=== PATIENT | female | born 1955 | race Caucasian/White ===

== ENCOUNTER → 2020-11-17 13:57 | Outpatient (CLI) | payer OTHER, SELFPAY ==
--- NOTE | ~2020-11-17 | CT_ITS ---
EXAMINATION: CT brain wo con DATE: 11/17/2020 14:36 INDICATION: Headache TECHNIQUE: Computed tomography (CT) of the head was performed without intravenous contrast. The mA wa s adjusted according to patient size. Iterative reconstruction technique was employed. Exam dose: 10 33.53 mGy-cm total exam DLP. COMPARISON: None FINDINGS: No intracranial mass lesion or hemorrhage or cerebrovascular accident. No midline shift or mass effect. No subdural or epidural hematoma. Normal ventricular size. No fracture or bone destruction of the cranial vault. The mastoid air cells and paranasal sinuses are normally developed and aerated. IMPRESSION: No significant abnormality Reviewed, dictated and finalized at Location [facility]. Reviewed, dictated and finalized at location B. [employer] IMPRESSION: No significant abnormality
--- NOTE | ~2020-11-17 | CT_ITS ---
EXAMINATION: CT abdomen pelvis wo con DATE: 11/17/2020 14:36 INDICATION: Left lower quadrant abdominal pain, diarrhea. History of colon resection in June 2020. TECHNIQUE: Computed tomography (CT) of the abdomen and pelvis was performed without intravenous contr ast. Automated exposure control and iterative reconstruction technique were employed. Exam dose: 103 3.53 mGy-cm total exam DLP. COMPARISON: 09/03/2014 CT abdomen pelvis with IV contrast material FINDINGS: There is mild atelectasis at the left lung base. No infiltrate or consolidation of the lowe r lungs is evident. Normal heart size. No pericardial or pleural effusion. Small sliding hiatal hernia. Status post cholecystectomy. No bile duct or pancreatic duct dilatation. No hepatic, splenic, pancrea tic, adrenal or renal space-occupying mass lesion is detected. There is atherosclerotic calcification but no aneurysm of the abdominal aorta. No intraperitoneal or retroperitoneal or pelvic mass lesion or adenopathy or ascites. The uterus and adnexal areas are unremarkable. The urinary bladder is evacuated. There is a suture line at the distal sigmoid colon consistent with history of partial colectomy. Ther e is diverticulosis of the left and right colon; no CT evidence of diverticulitis. No evidence of mauricio endicitis. No bowel obstruction, bowel wall thickening, pneumatosis or intraperitoneal free air. No suspicious osteolytic or osteoblastic lesions are noted. IMPRESSION: Partial left colon resection Diverticulosis of left and right colon; no CT evidence of diverticulitis Small sliding hiatal hernia Status post cholecystectomy Reviewed, dictated and finalized at [facility]. Reviewed, dictated and finalized at location B. [employer]
== END ==
PROVIDERS: Visit Provider Family Medicine
DX: R10.9 Unspecified abdominal pain (principal); R51.9 Headache, unspecified; Z90.49 Acquired absence of other specified parts of digestive tract; K57.90 Diverticulosis of intestine, part unspecified, without perforation or abscess without bleeding; K44.9 Diaphragmatic hernia without obstruction or gangrene
CPT/HCPCS: 70450; 74176

== ENCOUNTER 2021-05-04 08:15 | Outpatient (RCR) | payer OTHER, MEDICARE, SELFPAY ==
--- NOTE | 2021-04-04 16:47 | PTOPEVAL ---
PHYSICAL THERAPY EVALUATION Thank you for referring Adwoa Nugent to [facility].? Adwoa was evaluated for the dx of right shoulder adhesive capsulitis. The patient is scheduled to be seen for therapy? 2 x/week for 4 weeks. Please review, sign, date and return this plan of care GEOVANI. I agree with and certify that the following plan of care is medically necessary. Referring Physician Date Attending Provider: Gopi Yates MD *PT Outpatient Evaluation Start: 04/04/21 09:41 Freq: Status: Active Protocol: Document 04/04/21 09:40 MLV (Rec: 04/04/21 10:51 MLV [email or web address]) Therapy Assessment Status Assessment Status Assessment Status Evaluation Evaluation Information Problem Diagnosis right shoulder adhesive capsulitis Onset 07/2020 Cause increase arm use after colon surgery. Additional Evaluation Detail Pt reports having trouble with her shoulder starting 3 yrs ago when her elbow flared up, then the pain got worse after overusing her arm to get out of bed after a colon surgery. The patient has pain at her shoulder that goes all the way to her hand. The pt is retired, works out 5 days a week and was lifting weights until the shoulder got worse. The patient has increased pain with lifting, reaching, left sidelying, housework, yardwork and workouts. Pt inquires on how to change workouts so she can continue at the gym. Diagnostic Tests X-Rays For This Problem Yes: 2 bone spurs with tendon damage Pain Assessment Timing of Pain Assessment Timing of Pain Assessment Assessment Pain Scale Pain Scale Used Numeric (1 - 10) Self Report Pain Assessment Right Shoulder(s) Reported Pain Level 5 Pain Description Aching,Sharp Radicular Pain Location right arm to hand 3 of 10 pain at rest Pain Frequency Acute,Chronic,Continuous Greatest Pain Intensity 9 Pain Aggravating Factors ADL's,Exercise/Activity, Lifting Pain Behaviors Restless Pain Score Pain Score 5: Self Report Interventions Used Interventions Used By Clinicians Education,[employer]
--- NOTE | 2021-05-04 13:13 | PTOPEVAL ---
PHYSICAL THERAPY DISCHARGE Thank you for referring Adwoa Nugent to [facility].? Adwoa has completed 9 therapy visits for the dx of right shoulder adhesive capsulitis. The goals are partially met. ANGEL PT. Please review, sign, date and return this plan of care GEOVANI. I agree with and certify the following plan of care. Referring Physician Date Attending Provider: Gopi Yates MD *PT Outpatient Discharge Start: 04/04/21 09:41 Freq: Status: Active Protocol: Document 05/04/21 11:55 MLV (Rec: 05/04/21 12:02 MLV [email or web address]) Therapy Assessment Status Assessment Status Discharge Evaluation Information Problem Diagnosis right shoulder adhesive capsulitis Onset 07/2020 Cause increase arm use after colon surgery. Additional Evaluation Detail Patient feels she has improved with mobility/flexibility at her shoulder and the pain has decreased. Patient saw the MD today and reports she is to have an MRI next week and may possibly require surgery. The patient plans to continue her exercises as given here, on her own and will call if any issues arise. Pain Assessment Timing of Pain Assessment Timing of Pain Assessment Assessment Pain Scale Pain Scale Used Numeric (1 - 10) Self Report Pain Assessment Right Shoulder(s) Reported Pain Level 0 Other Pain Description 5 with motion and increased pain with attempting to lift any weight Pain Aggravating Factors Exercise/Activity,Lifting Pain Behaviors Guarding Pain Score Pain Score 0: Self Report Interventions Used Interventions Used By Clinicians Exercise,Heat,Ice,Manual Therapy Techniques Pain Relief Interventions Used By Inactivity/Rest,Position Patient Change Upper Extremity Range of Motion General Upper Extremity Range of Motion Gross Upper Extremity Range of Motion shoulder ROM: active: left Comments flexion 154', abduction 152', extension 82', ER 72', IR 80' right flexion 113', abduction 107', extension 77', ER 77', IR 75': passive flexion 158' (all motions improved from evaluation date) Upper Extremity Muscle Strength Testing General U
== END 2021-05-05 15:20 | disposition home or self-care (01) ==
LOC: ANHPT 08:15
PROVIDERS: PCP Family Medicine; Visit Provider Orthopaedic Surgery
DX: M75.01 Adhesive capsulitis of right shoulder (principal)
CPT/HCPCS: 97014; 97110; 97140; 97162; G0283

== ENCOUNTER → 2021-09-15 01:48 | Outpatient (CLI) | payer OTHER, MEDICARE, SELFPAY ==
[2021-09-15 22:24] LABS: SARS-CoV-2 RNA PCR Negative
== END ==
PROVIDERS: PCP Family Medicine; Visit Provider Family Medicine
DX: R51.9 Headache, unspecified (principal); Z20.822 Contact with and (suspected) exposure to COVID-19
CPT/HCPCS: C9803; U0003; U0005

== ENCOUNTER 2021-10-10 00:32 | Day surgery (SDC) | payer OTHER, MEDICARE, SELFPAY ==
[2021-08-22 10:37] VITALS: BMI 38.9
[2021-09-27 13:04] VITALS: BMI 39.0
--- NOTE | 2021-09-27 13:17 | PC.NURSE ---
Report to the Outpatient Waiting Room, entrance under the green pavilion located off [facility], at time ____829___ on date 10/10/21__. OR Time: ____1029____. - You and your visitor will be asked a series of questions to screen for COVID 19 for your protection. - A mask is required within the hospital. - Only one visitor is allowed at this time. Patient visitors will be guided where to wait when not with patient. Preoperative COVID Testing Requirements: No COVID Test needed if: (proof is required; if not received patient will have Rapid Test prior to entry) - Patient has received COVID Vaccine at least 14 days prior to procedure date or - Patient has positive COVID test result within last 90 days of surgery date. COVID Test needed if above criteria is not met If not COVID vaccinated a COVID test must be conducted within 72 hours of surgery and patient is asked to isolate self from time of testing until procedure. You will go to the [facility] for your COVID testing. The [facility] site is located at the corner of [address] from [facility]. You will only be called if COVID results are positive and your surgeon may reschedule your elective surgery date. Patients may have clear liquids (water, carbonated beverages, clear teas, apple juice) until 3 hours prior to surgery with a maximum of 20 ounces. - No food from midnight until time of surgery - Infants may have breast milk until 4 hours before surgery, infant formula 6 hours prior to surgery. - Children will be allowed to drink immediately following surgery. If applicable, please bring a bottle or sippy cup to assist with drinking. Juice, water, soda, and popsicles are readily available. For infants on formula, please bring formula the day of surgery. Pacifiers are allowed. Take the following medications with a SIP of water the morning of surgery: NONE Medications to discontinue per physician NONE Date to take last dose Please no make-up, nail bulgarian, hairspray, perfume, deodorant, or body powder the day of surgery. No jewelry (including any body piercings) or valuables the day of surgery, leave them at home. Please take a shower or bath the night before, or the morning of, surgery with an antibacterial soap. Wear comfortable, loose fitting clothing. Children are encouraged to wear pajamas. - Jewelry must be removed prior to entering the operating room. Rings and piercings that are not removed may be cut off. - The hospital will not accept responsibility for valuables. - Please leave all valuables, including medications, at home the day of surgery. If you are going home after surgery, a licensed route driver must drive you home. - NO public transportation without another adult. - We recommend that an adult stay with you for 24 hours following discharge. - We also recommend that you do not drive, make important decision, drink alcoholic beverages, or take any drugs that were not prescribed by your health care provider for at least 24 hours after your discharge time. For Pediatric surgeries, we recommend two adults accompany the child home (only one inside the building at this time). Follow any additional instructions given to you from your surgeon. Telephone instructions given to PATIENT and asked if any additional questions and then verbalized understanding. Patient advised to call surgeon office or pre surgery nurse liaison [phone] if any additional questions.
[2021-10-10] VITALS (10 sets, daily range): BP systolic 106–173; BP diastolic 61–94; PULSE 87–104; RESP 14–22; TEMP 36.4–36.6; O2SAT 91–100
--- NOTE | 2021-10-10 08:08 | P.PNAN_ITS ---
Anes - Initial Pre Proc Eval Procedure: Operation Date: 10/10/21 10:30 Proposed Procedures p Right Rotator Cuff Repair, Distal Clavicle Excision - Gopi Yates MD Date/Time: 10/10/21 08:08 Surgeon: Gopi Yates MD Pre Op Diagnosis: rt rotator cuff tear, ac arthritis Patient Data Age: 66 Gender: F Height: 1.6 m Weight: 100 kg Allergies Allergy/AdvReac Type Severity Reaction Status Date / Time codeine AdvReac Mild Nausea Verified 09/27/21 13:02 levofloxacin AdvReac Mild ACHILLES Verified 09/27/21 13:02 TENDON INFLAMATION Home Medications Medication Instructions Recorded Confirmed Type cetirizine 10 mg capsule 10 mg PO DAILY 05/04/21 10/04/21 History amitriptyline 10 mg tablet 10 mg PO QHS #30 tablet 09/14/21 10/04/21 Rx Patient hx anesthesia problems: post op nausea/vomiting Family hx anesthesia problems: none Results Review: All pre-operative results and documents have been reviewed as part of the pre-operative evaluation. [facility] Past Medical History Medical History (Updated 10/10/21 @ 09:21 by Naveed Darby, ) Abdominal pain Acute diverticulitis Acute non-recurrent maxillary sinusitis Arthritis of right acromioclavicular joint Bilateral lower abdominal discomfort Chronic right shoulder pain COVID-19 (11/29/20) Degenerative arthritis of knee, bilateral Diarrhea Exposure to COVID-19 virus Facial cellulitis Fibromyalgia Headache Hiatal hernia Incomplete tear of right rotator cuff Migraine headache without aura PONV (postoperative nausea and vomiting) Subacromial impingement of right shoulder Surgical History Surgical History H/O knee surgery History of cholecystectomy History of colon resection Family History Family History Mother Family history of cardiovascular disease Father Family history of malignant neoplasm, Onset Age: 79 Grandparent Family history of malignant neoplasm Sibling Family history of malignant neoplasm of breast in first degree relative Social History Social History Smoking status: Never smoker Alcohol intake: never Substance use: never Substance use type: does not use Living arrangements: with family Additional living arrangements comments: [place] Gender identity (if verbalized by the patient): Female Spiritual care concerns: No Anes - Eval Final PreProcedure Day of Procedure 10/10/21 08:08 Patient weight: obese Heart: regular rate and rhythm Lungs: clear to auscultation and normal air movement Airway: Mallampati scale class II Neurological: alert and oriented Last oral intake: >/= 8 hours ASA classification: II Emergent: no Anesthetic plan: proceed Anesthesia type and monitoring: general ETT and standard monitoring Results Review: All pre-operative results and documents have been reviewed as part of the pre-operative evaluation. Informed Consent: The patient's anesthetic plan and its attendant risks and benefits were discussed with the patient/family/POA. Questions were solicited and answers provided to the satisfaction of the patient/family/POA.
--- NOTE | 2021-10-10 09:27 | WPDANESPNB ---
Anes - Peripheral Nerve Block Date/Time: 10/10/21 09:27 I have discussed with the patient/family/POA the placement of a peripheral nerve block for post-operative pain management, including associated risks, benefits, complications, and side effects. Alternative methods of post-operative analgesia were detailed. Questions were solicited and answers provided to the satisfaction of the patient/family/POA. Time-Out: A pre-procedural Time-Out was completed immediately before starting the procedure and confirmed: Patient Identification, Site, Procedure, Patient Position and the Availability of Requisite Equipment. Clinical Indications: Acute post-operative pain management requested by the operative surgeon. Nerve Block Insertion Note Anes-nerve block: interscalene right Patient position: supine Skin prep: chlorhexidine Needle: 22 gauge, stimulating, insulated echogenic needle. Needle length: 50 mm Technique: ultrasound Injectate: bupivacaine 0.5% with epi 5 mcg/ml (30cc- no epi) Observations: tolerated well Complications: none Procedure start time:: 1035 Procedure end time:: 103
[2021-10-10] MEDS: ACETAMINOPHEN 500 MG TABLET 1000 MG PO (09:42)
[2021-10-10] MEDS: SCOPOLAMINE 1.5 MG PATCH TRANSDERM (09:44)
[2021-10-10] MEDS: LACTATED RINGERS 1,000 ML 30 ML IV CONT ×2 (09:45→12:16)
[2021-10-10] MEDS: KETOROLAC 15 MG/ML VIAL (*BKC) IV PUSH (09:57)
--- NOTE | 2021-10-10 10:22 | WPDHPUPDATE1 ---
History and Physical Update Update Date/Time: 10/10/21 10:22 History and Physical has been reviewed, including an updated exam of the patient. There are NO changes in the patient's condition. Risks, benefits, and alternatives have been discussed and questions answered. Patient agrees to proceed with procedure.
[2021-10-10] MEDS: ceFAZolin 2 GM/D5W 50 ML 2 GM/50 ML BAG IVPB (10:54)
[2021-10-10] MEDS: LIDO 1%/EPINEPHRINE/PF 1:200,000 30 ML VIAL 10 ML XX (11:25)
--- NOTE | 2021-10-10 12:16 | W.PM.PROC2 ---
Procedure Note - Detailed Date of Procedure 10/10/21 Pre-op Diagnosis rt rotator cuff tear, ac arthritis Post-op Diagnosis same Procedure Performed right rotator cuff repair with DCE Surgeon Gopi Yates MD Certified Diabetes Educator Sabine Steele Anesthesia general and regional Description of Procedure Patient was identified and proper site identified. In the preop holding area the anesthesia team performed a right upper extremity block. She was then taken to the operating room and transferred to the or table taking care to pad the torso and extremities. After general anesthetic induction and intubation, she was put in a semi beach chair position in the usual manner for a right shoulder procedure. Her head was secured taking care to neither rotate nor extend the head and neck. The right upper extremity was prepped and draped free in usual sterile fashion. The subcutaneous tissue in the area of the incision was injected with 10 cc of 0.25% Marcaine and epinephrine solution. An oblique anterior incision was made extending from the AC joint distally in line with the fibers of the deltoid. Subcutaneous tissue was sharply dissected down to the deltoid fascia. The deltoid was dissected off the anterior portion of the acromion in the distal end of the clavicle. A 2 cm split was made at the junction between the anterior and middle thirds of the deltoid. Using the microsagittal saw the last 8 mm of clavicle removed. The saw was also used to perform the acromioplasty and then the undersurface of the acromion was rasped smooth.. There was an abundance of thickened adherent bursa which was sharply debrided allowing for complete inspection of the cuff. There was a near full-thickness erosive type bursal sided tear the anterior portion of the supraspinatus. This was completed, the tendon edges freshened up and then tuberosity prepared for repair. The repair was carried out with 2. Ethibond suture passed through a bony bridge. This gave a arce repair which was stable as the shoulder was taken through range of motion. The wound was irrigated with sterile NaCl solution. The deltoid was repaired back to the acromion with 2. Ethibond suture passed through bone and the remainder of the deltoid repair carried out with 2. Vicryl. Subcutaneous tissue was reapproximated with 2. Strata fix and then tissue adhesive used for the skin. Sterile dressing was applied. There were no known intraoperative complications, and perioperative antibiotics were administered. Estimated Blood Loss 20 Drains No Packing No Pathology none sent Complications No immediate complications Condition stable Disposition PACU
--- NOTE | 2021-10-10 14:37 | SUR.PHASEII ---
Dr. Darby aware of O2 sats on room air and he said it's ok to discharge home.
== END 2021-10-10 15:05 | disposition home or self-care (01) ==
PROVIDERS: PCP Family Medicine; Visit Provider Orthopaedic Surgery
PROC: (CPT 23420; principal; 2021-10-10 10:30)
DX: M75.111 Incomplete rotator cuff tear or rupture of right shoulder, not specified as traumatic (principal); M19.011 Primary osteoarthritis, right shoulder; G89.18 Other acute postprocedural pain; E66.01 Morbid (severe) obesity due to excess calories; Z68.41 Body mass index [BMI] 40.0-44.9, adult
CPT/HCPCS: 23412; 23120; 64415; A4565; A9270; J0330; J0690; J1100; J1885; J2250; J2370; J2405; J2704; J3010; J7120

== ENCOUNTER 2021-10-18 11:33 | Outpatient (CLI) | payer OTHER, MEDICARE, SELFPAY ==
--- NOTE | ~2021-10-18 | XR_ITS ---
EXAMINATION: XR chest 2V DATE: 10/18/2021 11:56 INDICATION: Cough TECHNIQUE: PA and lateral views of the chest were obtained. COMPARISON: Chest radiograph dated 03/22/2016 FINDINGS: Mild eventration along the right hemidiaphragm. Unchanged left pericardial fat pads extending between the apex of the heart and the costophrenic angle. No airspace opacities, pulmonary edema, pleural ef fusion or pneumothorax. The cardiomediastinal silhouette is normal. There are bridging osteophytes at multiple levels in the spine, consistent with diffuse idiopathic skeletal hyperostosis (DISH). Brittney cystectomy clips in the right upper quadrant. IMPRESSION: 1. No acute cardiopulmonary disease. Reviewed, dictated and finalized at location B. R [employer] IN[employer]
== END 2021-10-18 11:34 | disposition home or self-care (01) ==
LOC: ANHIMG 11:43
PROVIDERS: PCP Family Medicine; Visit Provider Nurse Practitioner Family
DX: R05.9 Cough, unspecified (principal)
CPT/HCPCS: 71046

== ENCOUNTER 2022-01-06 10:00 | Outpatient (RCR) | payer MEDICARE, OTHER, SELFPAY ==
[2021-10-12 14:30] VITALS: BP_SYST 50
--- NOTE | 2021-10-12 15:37 | PTOPEVAL ---
Thank you for referring Adwoa Nugent to [facility].? The patient is scheduled to be seen for therapy? 2 x/week for 10 weeks. Please review, sign, date and return this plan of care GEOVANI. I agree with and certify that the following plan of care is medically necessary. Referring Physician Date Attending Provider: Gopi Yates MD Diagnosis OA with RCT right UE Additional Evaluation Detail s/p RCT repair 10/10/21 She works out 3x/wk for resistance and cardio, rides a bike and kayak. Subjective Information She received previous therapy Query Text:As Reported By Patient/ to address her shoulder Family limitations without improvement. She is s/p RTC repair and removal of bone spurs. She is wearing her UE sling when in the community. She reports increased constant right UE pain, limitations with all reaching task, limitations with sleeping, ADL's and all daily task. Her is performing all director of digital platforms since surgery. Pain Assessment Self Report Pain Assessment Right Shoulder(s) Reported Pain Level 5 Pain Description Aching Pain Frequency Acute Greatest Pain Intensity 10 Pain Aggravating Factors ADL's,Exercise/Activity, Lifting,Palpation,Prolonged Position Upper Extremity Range of Motion Scapular/ Shoulder Range of Motion Right Shoulder Flexion - Passive 80 Shoulder Abduction - Passive 50 Shoulder Medial Rotation - Passive 35 Shoulder Lateral Rotation - Passive 0 Scapular/Shoulder Range of Motion shoulder rotation with Gh jt Comments abducted 35 dg Upper Extremity Muscle Strength Testing General Upper Extremity Strength Reason Not Measured Surgery Precautions Gross Upper Extremity Strength Comments not tested at this time for shoulder elbow flex/ext: moving against gravity. Muscle Length Testing Muscle Length Testing Pectoralis Minor Muscle Length (R) Severe Tightness,(L) Severe Tightness Posture Sitting Position Head/C-Spine Posture Forward Head Shoulder Posture (L) Rounded,(R) Rounded,(R) Elevated Scapula Posture (L) Protracted,(R) Protracted, (R) Elevated,(L) Tipped,(R)
[2021-11-09 12:56] VITALS: BP_SYST 125
--- NOTE | 2021-11-09 14:05 | PTOPEVAL ---
Physical Therapy Progress Note Thank you for referring Adwoa Nugent to [facility].? See summary below for updated information on Adwoa's progress with UE function and goals. The patient is scheduled to be seen for therapy?2 x/week for 5 weeks. Please review, sign, date and return this plan of care GEOVANI. I agree with and certify that the following plan of care is medically necessary. Referring Physician Date Attending Provider: Gopi Yates MD Diagnosis OA with RCT right UE Additional Evaluation Detail s/p RCT repair 10/10/21 Subjective Information She is s/p RTC repair and Query Text:As Reported By Patient/ removal of bone spurs. She Family reports her shoulder is sore from the new exercises. She remains limited with reaching overhead and behind her back/ head. She is not able to raiza sleeping on her right UE. She is performing minimal senior director with no increased pain. She is performing her HEP daily. Pain Assessment Self Report Pain Assessment Right Shoulder(s) Reported Pain Level 3 Pain Description Aching Pain Frequency Acute Lowest Pain Intensity 2 Greatest Pain Intensity 6 Pain Aggravating Factors ADL's,Exercise/Activity, Lifting,Prolonged Position Upper Extremity Range of Motion Scapular/ Shoulder Range of Motion Right Shoulder Flexion - Active 90 Shoulder Flexion - Passive 140 Shoulder Extension - Active 40 Shoulder Abduction - Active 75 Shoulder Abduction - Passive 125 Shoulder Medial Rotation - Active 80 Shoulder Medial Rotation - Active buttock region:Reach Behind the Back Shoulder Lateral Rotation - Active 80 Scapular/Shoulder Range of Motion shoulder rotation with Gh jt Comments abducted 60 dg Upper Extremity Muscle Strength Testing Scapular/Shoulder Right Scapular Retraction - Middle Trapezius 2 Poor Scapular Retraction - Lower Trapezius 2- Poor - Shoulder Flexion Strength 3- Fair - Shoulder Extension Strength 4 Good Shoulder Abduction Strength 3- Fair - Shoulder Medial Rotation Strength 4- Good - Shoulder Lateral Rotation Strength 3+ Fair + Muscle Length Testing Muscle Length Testing Pectoralis Major Muscle Length (R) Moderate Tightness,(L) Moderate Tightness Pectoralis Minor Muscle Length (R) Severe Tightness,(L) Severe Tightness Palpation Assessment Palpation Palpation moderate tenderness with ti
[2021-12-08 08:00] VITALS: BP_SYST 130
--- NOTE | 2021-12-08 13:53 | PTOPEVAL ---
Physical Therapy Progress Note Thank you for referring Adwoa Nugent to [facility] [place].?See summary below for updated information on progress and limitations. She requires additional skilled therapy to achieve maximal functional level and achieve goals. The patient is scheduled to be seen for therapy?2 x/week for 4 weeks. Please review, sign, date and return this plan of care GEOVANI. I agree with and certify that the following plan of care is medically necessary. Referring Physician Date Attending Provider: Gopi Yates MD Problem Diagnosis OA with RCT right UE Additional Evaluation Detail She is s/p RTC repair and removal of bone spurs. Subjective Information She reports improved shoulder Query Text:As Reported By Patient/ pain, motion and strength. She Family remains limited with reaching behind her back/head. Noted improved reaching overhead motion. Improved raiza with sleeping on her right UE. 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 Pain Assessment Self Report Pain Assessment Right Shoulder(s) Reported Pain Level 1 Pain Description Soreness,Tightness Pain Frequency Continuous Lowest Pain Intensity 1 Greatest Pain Intensity 4 Pain Aggravating Factors ADL's,Exercise/Activity, Lifting Upper Extremity Range of Motion Scapular/ Shoulder Range of Motion Right Shoulder Flexion - Active 135 Shoulder Flexion - Passive 163 Shoulder Extension - Active 35 Shoulder Abduction - Active 123 Shoulder Abduction - Passive 130 Shoulder Medial Rotation - Active 85 Shoulder Medial Rotation - Active L4:Reach Behind the Back Shoulder Lateral Rotation - Active behind head:Reach Behind the Head Scapular/Shoulder Range of Motion Pain,Soft Tissue Restriction Limitations Scapular/Shoulder Range of Motion shoulder rotation with Gh jt Comments abducted 90 dg Upper Extremity Muscle Strength Testing Scapular/Shoulder Right Scapular Retraction - Middle Trapezius 3- Fair - Scapular Retraction - Lower Trapezius 2- Poor - Shoulder Flexion Strength 3+ Fair + Shoulder Extension Strength 5 Normal Shoulder Abduction Strength 3+ Fair + Shoulder Medial Rotation Strength 4 Good Shoulder Lateral Rotation Strength 4- Good - PT Clinical Summary Pt referred to therapy due to rotator cuff tear with s/p repair 10/10/21. She has attended 17 therapy visits to address her right shoulder impairments.
[2022-01-06 09:53] VITALS: BP_SYST 160
--- NOTE | 2022-01-06 10:46 | PTOPEVAL ---
Physical Therapy Discharge Summary Thank you for referring Adwoa Nugent to [facility].? Adwoa has attended 25 therapy visits to address her right shoulder impairments from surgery. As a result of skilled therapy services she demonstrates improved UE function, improved ROM and improved strength. She has been instructed in a HEP and has returned to the gym. She has reached her therapy goals at this time. Will DC skilled therapy services at this time. Please review, sign, date and return this discharge summary GEOVANI. I agree with and certify that the following plan of care is medically necessary. Referring Physician Date Admitting Provider: Attending Provider: Gopi Yates MD Diagnosis OA with RCT right UE Additional Evaluation Detail She is s/p RTC repair and removal of bone spurs. Subjective Information She has returned to the gym. Query Text:As Reported By Patient/ She had a f/u with this Family week. She reports improved shoulder pain and ability to perform daily task. 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 Pain Assessment Right Shoulder(s) Reported Pain Level 0 Lowest Pain Intensity 0 Greatest Pain Intensity 2 Pain Aggravating Factors Exercise/Activity Upper Extremity Range of Motion Scapular/ Shoulder Range of Motion Right Shoulder Flexion - Active 142 Shoulder Flexion - Passive 165 Shoulder Extension - Active 48 Shoulder Abduction - Active 135 Shoulder Abduction - Passive 160 Shoulder Medial Rotation - Active 80 Shoulder Medial Rotation - Active T12:Reach Behind the Back Shoulder Lateral Rotation - Active 85 Shoulder Lateral Rotation - Active C6:Reach Behind the Head Scapular/Shoulder Range of Motion Soft Tissue Restriction Limitations Scapular/Shoulder Range of Motion shoulder rotation with Gh jt Comments abducted 90 dg Upper Extremity Muscle Strength Testing Scapular/Shoulder Right Scapular Retraction - Middle Trapezius 3+ Fair + Scapular Retraction - Lower Trapezius 2 Poor Shoulder Flexion Strength 4- Good - Shoulder Extension Strength 5 Normal Shoulder Abduction Strength 4+ Good + Shoulder Medial Rotation Strength 5 Normal Shoulder Lateral Rotation Strength 4+ Good + PT Clinical Summary Pt referred to therapy due to rotator cuff tear with s/p repair 10/10/21. She has attended 25 therapy visits to address her right shoulder
== END 2022-01-06 12:44 | disposition home or self-care (01) ==
LOC: ANHPT 10:00
PROVIDERS: PCP Family Medicine; Visit Provider Orthopaedic Surgery
DX: Z48.89 Encounter for other specified surgical aftercare (principal); Z98.890 Other specified postprocedural states
CPT/HCPCS: 97014; 97110; 97140; 97162; G0283

== ENCOUNTER 2022-03-14 14:11 | Outpatient (CLI) | payer MEDICARE, OTHER, SELFPAY ==
--- NOTE | ~2022-03-14 | US_ITS ---
EXAMINATION: US venous doppler [facility] DATE: 03/14/2022 14:47 INDICATION: Left lower limb pain, left calf/foot pain TECHNIQUE: Grayscale images without and with compression and Doppler images of the left lower extremi ty veins were obtained. COMPARISON: None. FINDINGS: The left common femoral vein, profunda femoral vein, femoral vein, popliteal vein, peroneal vein, pos terior tibial veins, and greater saphenous vein are patent. IMPRESSION: 1. Patent left lower extremity veins. No evidence of deep venous thrombosis. Result communicated to Dr. Yates by Daniela at 3:05pm on 03/14/22. Reviewed, dictated and finalized at location K.
== END 2022-03-14 14:12 | disposition home or self-care (01) ==
PROVIDERS: PCP Family Medicine; Visit Provider Orthopaedic Surgery
DX: M79.662 Pain in left lower leg (principal)
CPT/HCPCS: 93971

== ENCOUNTER → 2022-03-23 07:52 | Outpatient (CLI) | payer MEDICARE, OTHER, SELFPAY ==
--- NOTE | ~2022-03-23 | MR_ITS ---
EXAMINATION: MR knee LT wo con DATE: 03/23/2022 08:20 INDICATION: Left knee pain TECHNIQUE: Magnetic resonance imaging (MRI) of the left knee was performed without intravenous contra st. Sequences included coronal PD-weighted FSE, coronal PD-weighted FS FSE, sagittal T2-weighted FSE , sagittal PD-weighted FS FSE and axial PD weighted fat saturated FSE. COMPARISON: None. FINDINGS: Medial compartment: Medial meniscus is normal. Partial-thickness cartilage loss with chondral surface regularity along th e anterior to central weightbearing medial femoral condyle. At the central weightbearing medial femor al condyle this appears to involve greater than 50% the cartilage thickness but without degenerative subchondral changes. Mild partial-thickness cartilage loss with smooth chondral surface along the med ial and posterior margins of the medial tibial plateau. Is additional cartilage loss with underlying subarticular edema along the anterior tibial spine at the anterolateral aspect of the medial tibial p lateau and the juxtaposed lateral margin of the anteriormost weightbearing medial femoral condyle. Lateral compartment: Lateral meniscus is normal. Articular cartilage is normal. Patellofemoral compartment: Chondral fissuring along the inferomedial margin of the medial patellar facet. Shallow chondral ulcer ation at the inferior aspect of the apical ridge. Deeper chondral ulceration extending across the med ial to lateral trochlea with small central subchondral osteophytes along the junction of the central to cephalad aspect of the trochlear groove. Moderate-sized marginal ossified along the inferior galalrdo la. Ligaments and tendons: Posterior cruciate ligament is normal. The posterolateral bundle of the anterior cruciate ligament ap pears to remain intact. The anteromedial bundle appears torn. Thickening and increased signal along t he medial collateral ligament centered just above level of the joint line without surrounding edema c onsistent with scarring related to chronic sprain. Enthesophytes and mild tendinopathy at the osseous insertions of the quadriceps and patellar tendons. The visualized medial and lateral hamstring tendo ns as well as the iliotibial band are normal. Fluid: Small left knee joint effusion at the suprapatellar pouch. 11 x 5 x 6 oh meter degenerative loose ost eochondral body in the recess along the posterior margin of the posterior cruciate ligament. Small am ount of nonloculated fluid overlying the enthesophyte at the inferior pole of the patella without dis crete bursal fluid collection. Osseous/other: Bone alignment is normal. No fracture or pathologic marrow replacing process. IMPRESSION: 1. Partial tear of the anterior cruciate ligament involving the anteromedial bundle. The posterolater al bundle appears to remain intact. 2. Osteoarthritis, mild to moderate severity with moderate to high-grade chondral malacia in the medi al compartment and mild with additional moderate to high-grade chondral malacia in the patellofemoral compartment. 3. Scarring consistent with chronic sprain at the proximal medial collateral ligament. 4. Chronic enthesopathy without tear at the osseous attachment of the quadriceps and patellar tendons . Reviewed, dictated and finalized at location A. IMPRESSION: 1. Partial tear of the anterior cruciate ligament involving the anteromedial bu ndle. The posterolateral bundle appears to remain intact. 2. Osteoarthritis, mild to moderate severity with moderate to high-grade chondr al malacia in the medial compartment and mild with additional moderate to high- grade chondral malacia in the patellofemoral compartment. 3. Scarring consistent with chronic sprain at the proximal medial collateral li gament.
== END ==
PROVIDERS: PCP Family Medicine; Visit Provider Orthopaedic Surgery
DX: S83.502A Sprain of unspecified cruciate ligament of left knee, initial encounter (principal); M17.12 Unilateral primary osteoarthritis, left knee; M76.9 Unspecified enthesopathy, lower limb, excluding foot
CPT/HCPCS: 73721

== ENCOUNTER 2022-03-24 01:32 | Day surgery (SDC) | payer MEDICARE, OTHER, SELFPAY ==
--- NOTE | 2022-03-21 11:31 | PM.IMHP ---
H&P: HPI History of Present Illness Date/Time: 03/21/22 11:31 66-year-old admitted for hysteroscopy and dilatation curettage secondary to postmenopausal bleeding. This patient had some bleeding and ultrasound showed some fibroids. The endometrial canal is prominent contain some hyperechoic material throughout with some vascular flow. Risks and benefits of this procedure were reviewed including but not exclusive of , aspiration pneumonia, bleeding, transfusion, perforation injury to bowel, bladder, ureters, or other internal organs with need for open laparotomy. She received the ACOG handout entitled hysteroscopy as well as dilatation curettage respectively. She had all questions answered and asked to proceed Chief Complaint: Postmenopausal bleeding Review of Systems Review of Systems: All systems reviewed & are unremarkable except as noted in HPI and below PMFSH Past Medical History Medical History Abdominal pain Urinalysis normal, lipase 19, AST 15, ALT 17 on 03/01/2022. Abnormal vaginal bleeding in postmenopausal patient Acute diverticulitis Acute non-recurrent maxillary sinusitis Benign essential HTN Bilateral lower abdominal discomfort Chest pain (~03/2022) ER 03/16/2022 with chest x-ray normal, EKG normal, cardiac enzymes normal. Chronic right shoulder pain Cough COVID-19 (11/29/20) Degenerative arthritis of knee, bilateral Diarrhea Exposure to COVID-19 virus Facial cellulitis Fibromyalgia Gastro-esophageal reflux disease without esophagitis Headache CT of the brain in the ER on 03/16/2022 negative. Hiatal hernia Iron deficiency anemia, unspecified (03/01/22) iron low at 20 with 12% saturation and ferritin 77 on 03/01/2022. Migraine headache without aura PONV (postoperative nausea and vomiting) Subacromial impingement of right shoulder Surgical History Surgical History Arthritis of right acromioclavicular joint DCE October 10, 2021 H/O knee surgery History of cholecystectomy History of colon resection History of repair of right rotator cuff Right rotator cuff repair with DCE October 10, 2021 Family History Family History Mother Family history of cardiovascular disease Father Family history of malignant neoplasm, Onset Age: 79 Grandparent Family history of malignant neoplasm Sibling Family history of malignant neoplasm of breast in first degree relative Social History Social History Smoking status: Never smoker Alcohol intake: never Substance use: never Substance use type: does not use Additional living arrangements comments: HUSB Gender identity (if verbalized by the patient): Female Spiritual care concerns: No Meds Home Medications and Allergies Home Medications Medication Instructions Recorded Confirmed Type pshuvgtatb-ranvctegbrahk-asvarwhv 1 cap PO Q4-6H PRN #60 cap 03/16/22 03/20/22 Rx 50 mg-300 mg-40 mg capsule metoprolol succinate 100 mg 100 mg PO DAILY #30 tablet 03/16/22 03/20/22 Rx tablet,extended release 24 hr atorvastatin 40 mg tablet 40 mg PO DAILY 03/17/22 03/20/22 History hydralazine 25 mg tablet 25 mg PO TID PRN 03/17/22 03/20/22 History lisinopril 40 mg tablet 40 mg PO DAILY 03/17/22 03/20/22 History pantoprazole 40 mg tablet,delayed 40 mg PO QAM 03/17/22 03/20/22 History release blood sugar diagnostic #50 ea 03/20/22 03/20/22 Rx blood-glucose meter #1 ea 03/20/22 03/20/22 Rx lancets 33 gauge #100 ea 03/20/22 03/20/22 Rx Allergies Allergy/AdvReac Type Severity Reaction Status Date / Time codeine AdvReac Mild Nausea Verified 03/17/22 13:19 levofloxacin AdvReac Mild ACHILLES Verified 03/17/22 13:19 TENDON INFLAMATION Exam Const: General: no acute distress Eyes: Ge
[2022-03-21 14:49] VITALS: BMI 41.0
--- NOTE | 2022-03-21 15:09 | PC.NURSE ---
Report to the Outpatient Waiting Room, entrance under the green pavilion located off [facility], at time __11:30AM on date __03/24/22 . OR Time: _1:30PM . - You and your visitor will be asked a series of questions to screen for COVID 19 for your protection. - Only one visitor is allowed at this time. - The patient visitor is requested to leave or wait in car when not with patient. - A mask is required within the hospital. Patients may have clear liquids (water, carbonated beverages, clear teas, apple juice) until 3 hours prior to surgery with a maximum of 20 ounces. - No food from midnight until time of surgery - Infants may have breast milk until 4 hours before surgery, infant formula 6 hours prior to surgery. - Children will be allowed to drink immediately following surgery. If applicable, please bring a bottle or sippy cup to assist with drinking. Juice, water, soda, and popsicles are readily available. For infants on formula, please bring formula the day of surgery. Pacifiers are allowed. Take the following medications with a SIP of water the morning of surgery: ___METOPROLOL, HYDRALAZINE NEEDED SBP> 180 Medications to discontinue per physician NONE Date to take last dose Please no make-up, nail spanish, hairspray, perfume, deodorant, or body powder the day of surgery. No jewelry (including any body piercings) or valuables the day of surgery, leave them at home. Please take a shower or bath the night before, or the morning of, surgery with an antibacterial soap. Wear comfortable, loose fitting clothing. Children are encouraged to wear pajamas. - Jewelry must be removed prior to entering the operating room. Rings and piercings that are not removed may be cut off. - The hospital will not accept responsibility for valuables. - Please leave all valuables, including medications, at home the day of surgery. If you are going home after surgery, a licensed tank driver must drive you home. - NO public transportation without another adult. - We recommend that an adult stay with you for 24 hours following discharge. - We also recommend that you do not drive, make important decision, drink alcoholic beverages, or take any drugs that were not prescribed by your health care provider for at least 24 hours after your discharge time. For Pediatric surgeries, we recommend two adults accompany the child home (only one inside the building at this time). Follow any additional instructions given to you from your surgeon. If you or anyone in your household have experienced Covid symptoms in the past week, please notify your surgeon or the nurse liaison at the phone number below for possible testing. Telephone instructions given to ___PATIENT and asked if any additional questions and then verbalized understanding. Patient advised to call surgeon office or pre surgery nurse liaison [phone] if any additional questions.
--- NOTE | 2022-03-24 07:20 | WPDHPUPDATE1 ---
History and Physical Update Update Date/Time: 03/24/22 07:20 History and Physical has been reviewed, including an updated exam of the patient. There are NO changes in the patient's condition. Risks, benefits, and alternatives have been discussed and questions answered. Patient agrees to proceed with procedure.
--- NOTE | 2022-03-24 12:25 | WPDANESEPPF ---
Anes - Initial Pre Proc Eval Procedure: Operation Date: 03/24/22 13:30 Proposed Procedures p Hysteroscopy, Dilation and Curettage - Pj Donaldson MD Date/Time: 03/24/22 12:25 Surgeon: Pj Donaldson MD Pre Op Diagnosis: post menopausal bleeding Patient Data Age: 66 Gender: F Height: 1.6 m Weight: 105 kg Allergies Allergy/AdvReac Type Severity Reaction Status Date / Time codeine AdvReac Mild Nausea Verified 03/21/22 14:42 levofloxacin AdvReac Mild ACHILLES Verified 03/21/22 14:42 TENDON INFLAMATION Home Medications Medication Instructions Recorded Confirmed Type atorvastatin 40 mg tablet 40 mg PO HS 03/17/22 03/21/22 History hydralazine 25 mg tablet 25 mg PO TID PRN 03/17/22 03/21/22 History lisinopril 40 mg tablet 40 mg PO QAM 03/17/22 03/21/22 History pantoprazole 40 mg tablet,delayed 40 mg PO QAM 03/17/22 03/21/22 History release metoprolol succinate 50 mg PO QAM 03/21/22 03/21/22 History blood sugar diagnostic #50 ea 03/22/22 Rx lancets 33 gauge #100 ea 03/22/22 Rx blood-glucose meter #1 ea 03/23/22 Rx hydrocodone-acetaminophen 1 tablet PO Q4H PRN #30 tablet 03/24/22 Rx Patient hx anesthesia problems: post op nausea/vomiting Family hx anesthesia problems: post op nausea/vomiting Results Review: All pre-operative results and documents have been reviewed as part of the pre-operative evaluation. [facility] Past Medical History Medical History Abdominal pain Urinalysis normal, lipase 19, AST 15, ALT 17 on 03/01/2022. Abnormal vaginal bleeding in postmenopausal patient Acute diverticulitis Acute non-recurrent maxillary sinusitis Benign essential HTN Bilateral lower abdominal discomfort Chest pain (~03/2022) ER 03/16/2022 with chest x-ray normal, EKG normal, cardiac enzymes normal. Chronic right shoulder pain Cough COVID-19 (11/29/20) Degenerative arthritis of knee, bilateral Diarrhea Exposure to COVID-19 virus Facial cellulitis Fibromyalgia Gastro-esophageal reflux disease without esophagitis Headache CT of the brain in the ER on 03/16/2022 negative. Hiatal hernia Iron deficiency anemia, unspecified (03/01/22) iron low at 20 with 12% saturation and ferritin 77 on 03/01/2022. Migraine headache without aura PONV (postoperative nausea and vomiting) Subacromial impingement of right shoulder Surgical History Surgical History Arthritis of right acromioclavicular joint DCE October 10, 2021 H/O knee surgery History of cholecystectomy History of colon resection History of repair of right rotator cuff Right rotator cuff repair with DCE October 10, 2021 Family History Family History Mother Family history of cardiovascular disease Father Family history of malignant neoplasm, Onset Age: 79 Grandparent Family history of malignant neoplasm Sibling Family history of malignant neoplasm of breast in first degree relative Social History Social History Smoking status: Never smoker Alcohol intake: never Substance use: never Substance use type: does not use Living arrangements: with family Additional living arrangements comments: HUSB Gender identity (if verbalized by the patient): Female Spiritual care concerns: No Anes - Eval Final PreProcedure Day of Procedure 03/24/22 12:25 Patient weight: morbidly obese Heart: regular rate and rhythm Lungs: clear to auscultation Airway: Mallampati scale class II Neurological: alert and oriented Last oral intake: >/= 8 hours ASA classification: III Emergent: no Anesthetic plan: proceed Anesthesia type and monitoring: general GIVS and standard monitoring Results Review: All pre-operative results and documents have been reviewed as part of the pre-operati
[2022-03-24 12:30] VITALS: BP 107/64; PULSE 63; RESP 16; TEMP 35.8; O2SAT 99
[2022-03-24] MEDS: ACETAMINOPHEN 500 MG TABLET 1000 MG PO (12:30)
[2022-03-24] MEDS: LACTATED RINGERS 1,000 ML 30 ML IV CONT (12:30)
[2022-03-24 13:04] LABS: Glucose Point of Care 97 mg/dl (65-105)
[2022-03-24 13:05] LABS: Hematocrit 38.6 % (37.0-47.0)
--- NOTE | 2022-03-24 13:52 | W.PM.PROC2 ---
Procedure Note - Detailed Date of Procedure 03/24/22 Pre-op Diagnosis post menopausal bleeding Post-op Diagnosis Other (Uterine polyps) Procedure Performed Hysteroscopy/polypectomy/dilatation curettage Surgeon Pj Donaldson MD Anesthesia MAC and Local Indications This is a 66-year-old female with postmenopausal bleeding Findings Benign-appearing endometrial polyps Description of Procedure The patient is prepped draped in normal sterile fashion placed in dorsal lithotomy position. Under excellent IV sedation weighted speculum was placed in posterior fornix vagina. Anterior lip of the cervix grasped with single-tooth tenaculum a 2.5cc 1% xylocaine anesthesia placed at 2, 4, 8, 10:00 a.m. of the cervix. The uterus sounded to 10cm. Serial dilatation with fragmented dilators performed followed by passage of the 5mm visualizing hysteroscope using normal saline as visualizing medium. Couple small endometrial polyps were present which appeared very benign in nature. The polyp forceps was passed in these were removed piecemeal. The uterus was then scraped over the entire 360? until a good grating sound was heard. When no further tissue could be removed instruments removed all were accounted for. She tolerated the procedure well. All sponge, needle, instrument counts were correct. There were no immediate complications noted Estimated Blood Loss 5 Drains No Packing No Pathology Yes Complications No immediate complications Condition Stable Disposition PACU
[2022-03-24 13:56] VITALS: BP 100/45; PULSE 63; RESP 16; O2SAT 96
[2022-03-24 14:30] VITALS: BP 129/59; PULSE 51; RESP 16
[2022-03-24 14:49] LABS: Glucose Point of Care 110 mg/dl (65-105)
== END 2022-03-24 15:00 | disposition home or self-care (01) ==
PROVIDERS: PCP Family Medicine; Visit Provider Obstetrics & Gynecology
PROC: 0U5B8ZZ Destruction of Endometrium, Via Natural or Artificial Opening Endoscopic (ICD-10-PCS; CPT 58563; principal; 2022-03-24 13:30)
DX: N95.0 Postmenopausal bleeding (principal); N85.01 Benign endometrial hyperplasia; I10 Essential (primary) hypertension; K21.9 Gastro-esophageal reflux disease without esophagitis; D50.9 Iron deficiency anemia, unspecified; M79.7 Fibromyalgia; E66.01 Morbid (severe) obesity due to excess calories; Z68.39 Body mass index [BMI] 39.0-39.9, adult
CPT/HCPCS: 58558; 36415; 82948; 85014; 85018; 88305; A9270; J2250; J2405; J2704; J3010; J7030; J7120

== ENCOUNTER 2022-04-12 09:04 | Outpatient (RCR) | payer MEDICARE, OTHER, SELFPAY ==
[2022-04-12 09:11] VITALS: BP 142/66; PULSE 79; TEMP 36.2; O2SAT 98
[2022-04-12] MEDS: FAMOTIDINE 20 MG TABLET PO (09:15)
[2022-04-12] MEDS: ACETAMINOPHEN 325 MG TABLET 650 MG PO (09:15)
[2022-04-12] MEDS: diphenhydrAMINE HCl CAP 25 MG CAPSULE PO (09:15)
[2022-04-12] MEDS: BEBTELOVIMAB 175 MG/2 ML VIAL IV PUSH (09:31)
== END 2022-04-12 16:00 ==
LOC: AMCINF 09:04
PROVIDERS: Referring Provider Family Medicine; Visit Provider Internal Medicine Hematology & Oncology
DX: U07.1 COVID-19 (principal); E11.9 Type 2 diabetes mellitus without complications; I10 Essential (primary) hypertension
CPT/HCPCS: A9270; M0222; Q0222

== ENCOUNTER 2022-05-19 10:31 | Outpatient (CLI) | payer MEDICARE, OTHER, SELFPAY | END 2022-05-19 10:32 | disposition home or self-care (01) | LOC: ANHSURGERY 10:38 | PROVIDERS: PCP Family Medicine; Visit Provider Obstetrics & Gynecology | DX: N85.02 Endometrial intraepithelial neoplasia [EIN] (principal) | CPT/HCPCS: 36415; 85025; 86850; 86900; 86901 ==

== ENCOUNTER 2022-05-24 00:51 | Day surgery (SDC) | payer MEDICARE, OTHER, SELFPAY ==
--- NOTE | 2022-05-17 14:39 | PC.NURSE ---
Report to the Outpatient Waiting Room, entrance under the green pavilion located off [facility], at time _0600 on date __05/24/22 . OR Time: __729 . - You and your visitor will be asked a series of questions to screen for COVID 19 for your protection. - Only one visitor is allowed at this time. - The patient visitor is requested to leave or wait in car when not with patient. - A mask is required within the hospital. Patients may have clear liquids (water, carbonated beverages, clear teas, apple juice) until 3 hours prior to surgery with a maximum of 20 ounces. - No food from midnight until time of surgery - Infants may have breast milk until 4 hours before surgery, infant formula 6 hours prior to surgery. - Children will be allowed to drink immediately following surgery. If applicable, please bring a bottle or sippy cup to assist with drinking. Juice, water, soda, and popsicles are readily available. For infants on formula, please bring formula the day of surgery. Pacifiers are allowed. Take the following medications with a SIP of water the morning of surgery: _AMLODIPINE,HYDRALAZINE IN NEEDED Medications to discontinue per physician MULTIVITAMNS 3 DAYS PRE OP Date to take last dose___05/20/22 Please no make-up, nail latvian, hairspray, perfume, deodorant, or body powder the day of surgery. No jewelry (including any body piercings) or valuables the day of surgery, leave them at home. Please take a shower or bath the night before, or the morning of, surgery with an antibacterial soap. Wear comfortable, loose fitting clothing. Children are encouraged to wear pajamas. - Jewelry must be removed prior to entering the operating room. Rings and piercings that are not removed may be cut off. - The hospital will not accept responsibility for valuables. - Please leave all valuables, including medications, at home the day of surgery. If you are going home after surgery, a licensed sales warehouse driver must drive you home. - NO public transportation without another adult. - We recommend that an adult stay with you for 24 hours following discharge. - We also recommend that you do not drive, make important decision, drink alcoholic beverages, or take any drugs that were not prescribed by your health care provider for at least 24 hours after your discharge time. For Pediatric surgeries, we recommend two adults accompany the child home (only one inside the building at this time). Follow any additional instructions given to you from your surgeon. If you or anyone in your household have experienced Covid symptoms in the past week, please notify your surgeon or the nurse liaison at the phone number below for possible testing. Telephone instructions given to _PATIENT and asked if any additional questions and then verbalized understanding. Patient advised to call surgeon office or pre surgery nurse liaison [phone] if any additional questions.
[2022-05-17 14:57] VITALS: BMI 38.9
[2022-05-19 11:02] LABS: Basophils Absolute Auto 0.1 K/mm3 (0.0-0.1); Basophils Percent Auto 1.1 % (0.2-1.2); Eosinophils Absolute Auto 0.1 K/mm3 (0-0.3); Eosinophils Percent Auto 1.1 % (0-4.4); Hemoglobin 12.4 g/dL (12.0-15.0); Immature Granulocyte Absolute 0.01 K/mm3 (0.00-0.031); Immature Granulocyte Percent A 0.1 % (0-0.5); Lymphocytes Absolute Auto 2.69 K/mm3 (0.9-3.2); Lymphocytes Percent Auto 33.7 % (18.3-44.2); Mean Corpuscular HGB Conc 31.8 g/dl (32-36); Mean Corpuscular Hemoglobin 26.2 pg (26-34); Mean Corpuscular Volume 82.5 fl (80-100); Mean Platelet Volume 10.2 fl (7.4-10.4); Monocytes Absolute Auto 0.5 K/mm3 (0.1-0.6); Monocytes Percent Auto 6.4 % (2.6-8.5); Neutrophils Absolute Auto 4.6 K/mm3 (1.3-6.7); Neutrophils Percent Auto 57.6 % (45.5-73.1); Platelet Count Result 319 k/mm3 (150-375); Red Blood Count 4.73 M/mm3 (4.2-5.4); Red Cell Distribution Width 15.1 % (11.5-14.5)
--- NOTE | 2022-05-23 04:42 | PM.IMHP ---
H&P: HPI History of Present Illness Date/Time: 05/23/22 04:42 Chief Complaint: Complex hyperplasia and stress urinary incontinence Narrative: A 78 year who is admitted for robotic hysterectomy bilateral salpingo-oophorectomy and tension-free vaginal tape. She has hysteroscopically directed biopsies which showed complex type complex hyperplasia. And has stress urinary incontinence. She after hysterectomy and T BT. Risks and benefits reviewed including but not exclusive of , aspiration pneumonia, bleeding, transfusion, perforation injury to bowel, bladder, ureters, or other internal organs with need for open laparotomy. Risks associated with mesh were also reviewed with possible need for intermittent catheterization etc. were reviewed. She received the ACOG handout entitled hysterectomy as well as the de Kaila handout. She received the handout on tension-free vaginal tape and had all questions answered. She asked to proceed PMFSH Past Medical History Medical History Abdominal pain Urinalysis normal, lipase 19, AST 15, ALT 17 on 03/01/2022. Abnormal vaginal bleeding in postmenopausal patient Acute diverticulitis Acute non-recurrent maxillary sinusitis Benign essential HTN renal Doppler revealed greater than 60% stenosis right renal artery and less than 60% on the left Mar, 2022 by csw. Nuclear stress test was negative. Bilateral lower abdominal discomfort Chest pain (~03/2022) ER 03/16/2022 with chest x-ray normal, EKG normal, cardiac enzymes normal. Chronic right shoulder pain Controlled diabetes mellitus Glucose 115 with hemoglobin A1c 5.8 on 03/03/2022. Cough COVID-19 (11/29/20) COVID-19 (~04/10/22) 2nd episode with positive COVID test 04/10/2022. Degenerative arthritis of knee, bilateral Diarrhea Exposure to COVID-19 virus Facial cellulitis Fibromyalgia Gastro-esophageal reflux disease without esophagitis Headache CT of the brain in the ER on 03/16/2022 negative. Hiatal hernia Impaired fasting glucose Glucose 115 with hemoglobin A1c 5.8 on 03/01/2022. Iron deficiency anemia, unspecified (03/01/22) iron low at 20 with 12% saturation and ferritin 77 on 03/01/2022. Migraine headache without aura PONV (postoperative nausea and vomiting) Subacromial impingement of right shoulder Surgical History Surgical History Arthritis of right acromioclavicular joint DCE October 10, 2021 H/O knee surgery History of cholecystectomy History of colon resection History of repair of right rotator cuff Right rotator cuff repair with DCE October 10, 2021 Family History Family History Mother Family history of cardiovascular disease Father Family history of malignant neoplasm, Onset Age: 79 Grandparent Family history of malignant neoplasm Sibling Family history of malignant neoplasm of breast in first degree relative Social History Social History Smoking status: Never smoker Alcohol intake: never Substance use: never Substance use type: does not use Additional living arrangements comments: [facility] Gender identity (if verbalized by the patient): Female Spiritual care concerns: No Meds Home Medications and Allergies Home Medications Medication Instructions Recorded Confirmed Type atorvastatin 40 mg tablet 40 mg PO HS 03/17/22 05/17/22 History hydralazine 25 mg tablet 25 mg PO TID PRN elevated blood 03/17/22 05/17/22 History pressure hydrocodone 5 mg-acetaminophen 325 1 tablet PO Q4H PRN pain #30 tabs 03/24/22 05/17/22 Rx mg tablet blood-glucose meter (OneTouch #1 ea 03/28/22 04/12/22 Rx Ultra2 Meter kit) amlodipine 2.5 mg tablet 2.5 mg PO QAM 04/04/22 05/17/22 History blood sugar diagnostic (OneTouch #50 ea 05/04/22 Rx Ultr
--- NOTE | 2022-05-23 13:22 | WPDANESEPPF ---
Anes - Initial Pre Proc Eval Procedure: Operation Date: 05/24/22 07:30 Proposed Procedures p Robotic Assisted Total Vaginal Hysterectomy with Bilateral Salpingo-Oophorectomy, - Pj Donaldson MD s Tension Free Vaginal Taping - Pj Donaldson MD Date/Time: 05/23/22 13:22 Surgeon: Pj Donaldson MD Pre Op Diagnosis: Complex hyperplasia with atypia Patient Data Age: 67 Gender: F Height: 1.6 m Weight: 99.8 kg Allergies Allergy/AdvReac Type Severity Reaction Status Date / Time codeine AdvReac Mild Nausea Verified 05/24/22 06:06 levofloxacin AdvReac Mild ACHILLES Verified 05/24/22 06:06 TENDON INFLAMATION Home Medications Medication Instructions Recorded Confirmed Type atorvastatin 40 mg tablet 40 mg PO HS 03/17/22 05/24/22 History hydralazine 25 mg tablet 25 mg PO TID PRN elevated blood 03/17/22 05/17/22 History pressure hydrocodone 5 mg-acetaminophen 325 1 tablet PO Q4H PRN pain #30 tabs 03/24/22 05/17/22 Rx mg tablet blood-glucose meter (OneTouch #1 ea 03/28/22 04/12/22 Rx Ultra2 Meter kit) amlodipine 2.5 mg tablet 2.5 mg PO QAM 04/04/22 05/24/22 History blood sugar diagnostic (OneTouch #50 ea 05/04/22 Rx Ultra Test strips) lancets 33 gauge (OneTouch Delica #100 ea 05/04/22 Rx Lancets) pantoprazole 40 mg tablet,delayed 40 mg PO QAM #90 tabs 05/04/22 05/24/22 Rx release (Protonix) irbesartan 300 mg tablet 300 mg PO HS 05/17/22 05/24/22 History multivitamin 1 tablet PO DAILY 05/17/22 05/24/22 History hydrocodone 5 mg-acetaminophen 325 1 tablet PO Q4H PRN pain #30 tabs 05/24/22 Rx mg tablet Patient hx anesthesia problems: none Family hx anesthesia problems: none Results Review: All pre-operative results and documents have been reviewed as part of the pre-operative evaluation. [facility] Past Medical History Medical History Abdominal pain Urinalysis normal, lipase 19, AST 15, ALT 17 on 03/01/2022. Abnormal vaginal bleeding in postmenopausal patient Acute diverticulitis Acute non-recurrent maxillary sinusitis Benign essential HTN renal Doppler revealed greater than 60% stenosis right renal artery and less than 60% on the left Mar, 2022 by director of workforce development. Nuclear stress test was negative. Bilateral lower abdominal discomfort Chest pain (~03/2022) ER 03/16/2022 with chest x-ray normal, EKG normal, cardiac enzymes normal. Chronic right shoulder pain Controlled diabetes mellitus Glucose 115 with hemoglobin A1c 5.8 on 03/03/2022. Cough COVID-19 (11/29/20) COVID-19 (~04/10/22) 2nd episode with positive COVID test 04/10/2022. Degenerative arthritis of knee, bilateral Diarrhea Exposure to COVID-19 virus Facial cellulitis Fibromyalgia Gastro-esophageal reflux disease without esophagitis Headache CT of the brain in the ER on 03/16/2022 negative. Hiatal hernia Impaired fasting glucose Glucose 115 with hemoglobin A1c 5.8 on 03/01/2022. Iron deficiency anemia, unspecified (03/01/22) iron low at 20 with 12% saturation and ferritin 77 on 03/01/2022. Migraine headache without aura PONV (postoperative nausea and vomiting) Subacromial impingement of right shoulder Surgical History Surgical History Arthritis of right acromioclavicular joint DCE October 10, 2021 H/O knee surgery History of cholecystectomy History of colon resection History of repair of right rotator cuff Right rotator cuff repair with DCE October 10, 2021 Family History Family History Mother Family history of cardiovascular disease Father Family history of malignant neoplasm, Onset Age: 79 Grandparent Family history of malignant neoplasm Sibling Family history of malignant neoplasm of breast in first degree relative Social History Social History (Reviewed 05/23/22 @ 04:43 by
[2022-05-24] VITALS (14 sets, daily range): BP systolic 118–150; BP diastolic 57–77; PULSE 53–93; RESP 12–18; TEMP 36.1–36.7; O2SAT 95–100
[2022-05-24] MEDS: ACETAMINOPHEN 500 MG TABLET 1000 MG PO (06:21)
--- NOTE | 2022-05-24 06:32 | WPDHPUPDATE1 ---
History and Physical Update Update Date/Time: 05/24/22 06:32 History and Physical has been reviewed, including an updated exam of the patient. There are NO changes in the patient's condition. Risks, benefits, and alternatives have been discussed and questions answered. Patient agrees to proceed with procedure.
[2022-05-24] MEDS: LACTATED RINGERS 1,000 ML 30 ML IV CONT ×2 (06:45→09:06)
[2022-05-24] MEDS: KETOROLAC 15 MG/ML VIAL (*BKC) IV PUSH (06:46)
[2022-05-24 07:11] LABS: Glucose Point of Care 133 mg/dl (65-105)
[2022-05-24] MEDS: SCOPOLAMINE 1.5 MG PATCH TRANSDERM (07:18)
[2022-05-24] MEDS: ceFAZolin 2 GM/D5W 50 ML 2 GM/50 ML BAG IVPB (07:29)
--- NOTE | 2022-05-24 08:56 | W.PM.PROC2 ---
Procedure Note - Detailed Date of Procedure 05/24/22 Pre-op Diagnosis Complex hyperplasia with atypia Post-op Diagnosis Other (Adhesions) Procedure Performed Robotic total vaginal hysterectomy bilateral salpingo-oophorectomy/extensive lysis of adhesions Surgeon Pj Donaldson MD Anesthesia General Indications 67-year-old female with complex atypical hyperplasia on directed biopsy. She complained of stress urinary incontinence however due to the adhesions anteriorly with the omental cake and small bowel that was not performed for safety sake. Findings Multiple adhesions from her previous abdominal surgery. Omental omentum and bowel were anteriorly adhesed and throughout covering the bladder uterus and ovaries and tubes. Description of Procedure The patient was prepped draped in normal sterile fashion placed in the dorsal lithotomy position. Under excellent general trach anesthesia weighted speculum placed post were expanded. Anterior lip of the cervix grasped with single-tooth tenaculum and the uterus sounded to 7cm. Serial dilatation with fragmented dilators performed followed passes the 6. CECELIA and the 2. 0.5 cold cup. Next an 18 Upper Sorbian catheter was placed in the bladder draining clear urine. The weighted speculum and single-tooth was removed. The gloves were changed. A supraumbilical incision made the Veress needle passed in the abdomen. Abdomen filled with CO2 gas [id number]. The 8mm trocar advanced in the abdomen the downside visualized. No injury seen. Gas reattached patient placed in Trendelenburg. Right left lateral quadrant incisions were made and the 8mm trocars advanced under direct visualization multiple adhesions were seen and use of Endo Arlette were necessitated 2 visualized uterus ovaries and tubes. The right upper quadrant incision made and the 5mm 8mm trocar advanced under direct visualization assuring no injury. The robot was docked. Attention was turned to the developmental training counselor. Multiple adhesions were seen over the uterus ovaries tubes using sharp dissection these were cleared until the infundibulopelvic structures could be skeletonized. The left round ligament was grasped, burned, cut. Anteriorly a bladder flap was formed by sharply dissecting the peritoneum and pushing the bladder caudally to the opposite round ligament was clamped, burned, cut. Next the left infundibulopelvic structure was skeletonized clamped, burned, cut. This was brought to the level of previously cut round ligament. Likewise the right infundibulopelvic structure was skeletonized. Clamped, burned, cut and brought to the level of previous cut round ligament. Next the cardinal and broad ligaments on the left were serially skeletonized clamping burning cutting and hugging the cervix and uterus and to the uterine vessels could be seen on the left these were clamped, burned, cut. In like fashion the cardinal broad ligaments on the right were serially skeletonized clamped, burned, cut and brought down to the level of the uterine vessels on the right these were individually clamped, burned, cut. Colpotomy incision was made cervix uterus tubes and ovaries removed through the vagina. The vagina was then closed with continuous running 0V lock from lateral edge to lateral edge back to the midline. Irrigation undertaken until clear after [id number] vaginal tape this was abandoned due to the anterior omentum and the anterior wall. The robot was undocked. The gas removed from the abdomen. The incisions closed with 4-0 Monocryl and glue. The patient was awakened and went to recovery in satisfactory condition. All sponge, needle, instrument counts were correct. There were no immediate complications Estimated Blood Loss 25 Drains No Packing No Pathology Yes Complications Other complications (Bladder sling was not performed secondary to anterior adhesions) Condition Stable Disposition PACU
[2022-05-24] MEDS: ONDANSETRON INJ 4 MG/2 ML VIAL IV PUSH (09:20)
[2022-05-24 09:33] LABS: Glucose Point of Care 176 mg/dl (65-105)
[2022-05-24] MEDS: fentaNYL CITRATE INJ (*CRX) 100 MCG/2 ML VIAL 25 MCG IV PUSH ×6 (09:42→10:10)
--- NOTE | 2022-05-24 10:40 | PC.NURSE ---
This patient, Adwoa Nugent, was received from PACU on 05/24/22 at 1040. Patient/family oriented to unit policies and routines
[2022-05-24] MEDS: DEXTROSE 5%/LACTATED RINGERS 1,000 ML 125 ML IV CONT (11:08)
[2022-05-24] MEDS: KETOROLAC 30 MG/ML VIAL (*BKC) IV PUSH (11:12)
[2022-05-24] MEDS: SIMETHICONE 80 MG TAB.CHEW PO (14:43)
[2022-05-24] MEDS: HYDROcodone/acetaminophen (*CRX) 5-325 MG TABLET 1 TAB PO ×2 (14:44→23:35)
[2022-05-24] MEDS: ENOXAPARIN 40 MG/0.4 ML SYRINGE SUB-Q (14:46)
[2022-05-24] MEDS: DOCUSATE SODIUM 100 MG CAPSULE PO (17:14)
[2022-05-24] MEDS: BENZONATATE 100 MG CAPSULE PO (17:15)
[2022-05-24] MEDS: IBUPROFEN 600 MG TABLET PO (23:36)
[2022-05-25 05:00] VITALS: BP 112/60; PULSE 75; RESP 16; TEMP 36.8; O2SAT 96
[2022-05-25 05:13] LABS: Basophils Absolute Auto 0.1 K/mm3 (0.0-0.1); Basophils Percent Auto 0.4 % (0.2-1.2); Eosinophils Percent Auto 0.2 % (0-4.4); Hematocrit 36.8 % (37.0-47.0); Hemoglobin 11.5 g/dL (12.0-15.0); Immature Granulocyte Absolute 0.04 K/mm3 (0.00-0.031); Immature Granulocyte Percent A 0.3 % (0-0.5); Lymphocytes Absolute Auto 2.96 K/mm3 (0.9-3.2); Lymphocytes Percent Auto 23.3 % (18.3-44.2); Mean Corpuscular HGB Conc 31.3 g/dl (32-36); Mean Corpuscular Volume 83.3 fl (80-100); Mean Platelet Volume 10.2 fl (7.4-10.4); Monocytes Absolute Auto 0.9 K/mm3 (0.1-0.6); Monocytes Percent Auto 7.1 % (2.6-8.5); Neutrophils Absolute Auto 8.8 K/mm3 (1.3-6.7); Neutrophils Percent Auto 68.7 % (45.5-73.1); Platelet Count Result 312 k/mm3 (150-375); Red Blood Count 4.42 M/mm3 (4.2-5.4); White Blood Count 12.7 K/mm3 (4.5-10.0)
--- NOTE | 2022-05-25 06:07 | PM.GYNPNOP ---
POLICE DETECTIVE - A/P Assessment and plan (1) Postoperative pain: Code(s): G89.18 - Other acute postprocedural pain Status: Acute Postoperative Procedures: Procedures Operation Date: 05/24/22 07:30 Actual Procedure Side Surgeon p Robotic Assisted Total Vaginal Hysterectomy with Bilateral Salpingo-Oophorectomy, Not Applicable Pj Donaldson MD Postoperative day: 1 Postoperative status: doing well Postoperative plan: routine post-op care, advance diet and discharge Time Spent With Patient Time: Total time spent is greater than 50% in coordination of care (as documented) at patient's floor/unit and/or counseling patient: Time with patient: less than 15 minutes POLICE DETECTIVE- PN:Subj Post-Op Subjective Date/time seen: 05/25/22 06:07 Subjective: patient reports feeling better, patient has no complaints, patient desires discharge and pain is well controlled POLICE DETECTIVE - PN: Obj Data Vital Signs Vital Signs: Vital Signs - 24 hr 05/24/22 06:16 05/24/22 09:06 05/24/22 09:20 Temperature 97.3 F L 97.1 F L Pulse Rate 84 88 74 Respiratory Rate 16 18 18 Blood Pressure 150/77 H 130/62 131/64 Pulse Oximetry 98 97 100 Oxygen Delivery Room Air Simple Face Mask Simple Face Mask Oxygen Flow Rate 9 10 05/24/22 09:35 05/24/22 09:50 05/24/22 10:00 Temperature Pulse Rate 71 57 L 61 Respiratory Rate 12 14 13 Blood Pressure 129/62 118/57 L 121/60 Pulse Oximetry 100 98 99 Oxygen Delivery Simple Face Mask Nasal Cannula Nasal Cannula Oxygen Flow Rate 10 2 2 05/24/22 10:15 05/24/22 10:30 05/24/22 11:00 Temperature 97.0 F L Pulse Rate 53 L 76 58 L Respiratory Rate 13 15 16 Blood Pressure 120/62 126/68 134/66 Pulse Oximetry 97 100 100 Oxygen Delivery Nasal Cannula Nasal Cannula Oxygen Flow Rate 2 2 05/24/22 11:00 05/24/22 13:30 05/24/22 14:20 Temperature Pulse Rate 58 L Respiratory Rate 16 16 16 Blood Pressure Pulse Oximetry 100 100 99 Oxygen Delivery Nasal Cannula Nasal Cannula Room Air Oxygen Flow Rate 2 1 05/24/22 15:40 05/24/22 20:20 05/24/22 23:35 Temperature 97.6 F 98.0 F 98.1 F Pulse Rate 92 93 92 Respiratory Rate 16 18 18 Blood Pressure 139/73 119/60 133/61 Pulse Oximetry 95 95 Oxygen Delivery Oxygen Flow Rate 05/25/22 05:00 Temperature 98.2 F Pulse Rate 75 Respiratory Rate 16 Blood Pressure 112/60 Pulse Oximetry 96 Oxygen Delivery Oxygen Flow Rate Intake/Output Intake/Output: Intake & Output 05/22/22 05/23/22 05/24/22 05/25/22 23:59 23:59 23:59 23:59 Intake Total 2680 Output Total 1925 200 Balance 755 -200 Meds/Results Medications: Active Medications Generic Name Dose Route Start Last Admin Trade Name Freq PRN Reason Stop Dose Admin Hydrocodone Bitart/Acetaminophen 1 tab 05/24/22 10:37 05/24/22 23:35 Hydrocodone/Acetaminophen (*Crx) 5-325 Mg Tablet PO 1 tab Q3H PRN Administration Pain Rated 5 or Less Hydrocodone Bitart/Acetaminophen 1 tab 05/24/22 10:37 Hydrocodone/Acetaminophen (*Crx) 10-325 Mg Tablet PO Q3H PRN Pain Rated 6 or Greater Benzonatate 100 mg 05/24/22 17:00 05/24/22 17:15 Benzonatate 100 Mg Capsule PO 100 mg TID SABRINA Administration Docusate Sodium 100 mg 05/24/22 10:37 05/24/22 20:36 Docusate Sodium 100 Mg Capsule PO Not Given BID SABRINA Enoxaparin Sodium 40 mg 05/24/22 10:37 05/24/22 14:46 Enoxaparin 40 Mg/0.4 Ml Syringe SUB-Q 40 mg DAILY SABRINA Administration Ibuprofen 600 mg 05/24/22 10:37 05/24/22 23:36 Ibuprofen 600 Mg Tablet PO 600 mg Q6H PRN Administration Cramping Ketorolac Tromethamine 30 mg 05/24/22 10:37 05/24/22 11:12 Ketorolac 30 Mg/Ml Vial (*Bkc) IV PUSH 05/29/22 10:36 30 mg Q6H PRN Administration Pain Rated 4-6 Naloxone HCl 0.1 mg 05/24/22 10:37 Naloxone Hcl 0.4 Mg/Ml Vial IV PUSH Q2M PRN Respiratory rate less than 10 Ondansetron HCl 4 mg 07/13/22 10:37 Ondansetron Inj 4 Mg/2 Ml Vial IV PUSH
--- NOTE | 2022-05-25 06:09 | PM.DS ---
DS: Admitting Diagnosis Discharge Date 05/25/2022 Admitting Diagnosis atypical complex hyperplasia/ pelvic pain/postmenopausal bleeding DS: Discharge Diagnosis Discharge Diagnosis (1) Complex endometrial hyperplasia with atypia: Code(s): N85.02 - Endometrial intraepithelial neoplasia [EIN] Status: Acute (2) Postmenopausal bleeding: Code(s): N95.0 - Postmenopausal bleeding Status: Acute Plan home /follow-up in 2 weeks DS: Summary Hospital Course Reason for hospitalization: is a 67-year-old female admitted for robotic hysterectomy bilateral salpingo-oophorectomy and possible bladder sling. She had a abdomen full of adhesions and therefore the TVT was not undertaken. Her hospital course otherwise was unremarkable. She was afebrile. She was up, voiding without difficulty, ambulating, eating regular diet, and generally without complaints. Hospital Course: See above Time Spent with Patient Time attestation: Total time spent providing and/or coordinating discharge services: DS: Data Data Completed and Pending Pending studies at discharge: Pending at discharge 05/24/22 08:44 Surgical [PTH] Routine Labs on day of discharge: Labs from last 24 hours 05/25/22 05/24/22 05/24/22 05:04 09:32 06:37 WBC 12.7 H RBC 4.42 Hgb 11.5 L Hct 36.8 L MCV 83.3 MCH 26.0 MCHC 31.3 L RDW 15.0 H Plt Count 312 MPV 10.2 Immature Gran % (Auto) 0.3 Neut % (Auto) 68.7 Lymph % (Auto) 23.3 [place]oval % (Auto) 7.1 Eos % (Auto) 0.2 Baso % (Auto) 0.4 Lymph # (Auto) 2.96 Sandoval # (Auto) 0.9 H Eos # (Auto) 0.0 Baso # (Auto) 0.1 Abs Immat Gran (auto) 0.04 H Absolute Neuts (auto) 8.8 H Absolute Nucleated RBC 0.0 Nucleated RBC % 0.0 POC Capillary Glucose 176 H 133 H Discharge Plan Discharge Patient Disposition: Home, Self-Care Discharge Instructions: Remove the Scopolamine patch that was placed behind your ear in 72 hours or less. Wash your hands after touching. Stand Alone Forms: General Discharge Instructions Follow-up/Referrals: Dalla Bronx,Pj J., MD [Physician] - Discharge Medications: New hydrocodone-acetaminophen 5-325 mg tablet 1 tablet PO Q4H PRN (Reason: pain) Qty: 30 0RF Continued irbesartan 300 mg tablet 300 mg PO HS multivitamin Tablet 1 tablet PO DAILY hydrocodone-acetaminophen 5-325 mg tablet 1 tablet PO Q4H PRN (Reason: pain) Qty: 30 0RF atorvastatin 40 mg tablet 40 mg PO HS hydralazine 25 mg tablet 25 mg PO TID PRN (Reason: elevated blood pressure) Rx Instructions: FOR SBP> 180 (DME) blood-glucose meter [[employer]Touch Ultra2 Meter] Kit See Rx Instructions .Route Qty: 1 1RF Rx Instructions: use daily amlodipine 2.5 mg tablet 2.5 mg PO QAM Label Comments: prescribed by catalytic case operator started 03/31/2022 (DME) OneTouch Ultra Test Strip See Rx Instructions .Route Qty: 50 11RF Rx Instructions: Use once daily to check blood sugar (DME) lancets [OneTouch Delica Lancets] 33 gauge misc See Rx Instructions .Route Qty: 100 3RF Rx Instructions: use once daily to check blood sugar pantoprazole [Protonix] 40 mg tablet,delayed release (DR/EC) 40 mg PO QAM Qty: 90 3RF
[2022-05-25] MEDS: DOCUSATE SODIUM 100 MG CAPSULE PO (07:44)
[2022-05-25] MEDS: IBUPROFEN 600 MG TABLET PO (07:44)
[2022-05-25] MEDS: BENZONATATE 100 MG CAPSULE PO (07:44)
[2022-05-25] MEDS: SIMETHICONE 80 MG TAB.CHEW PO (07:44)
[2022-05-25] MEDS: ENOXAPARIN 40 MG/0.4 ML SYRINGE SUB-Q (07:45)
[2022-05-25 08:35] VITALS: BP 121/60; PULSE 78; RESP 18; TEMP 36.5; O2SAT 98
--- NOTE | 2022-05-25 12:24 | P.PNAN_ITS ---
Anes - Prog Note Post-Op Date/Time: 05/25/22 12:24 Cardiovascular status: normal Respiratory status: normal Airway patency: baseline Mental status: baseline Post-Op hydration status: normal Vital Signs: Last Vital Signs Temp 97.7 F 05/25/22 08:35 Pulse 78 05/25/22 08:35 Resp 18 05/25/22 08:35 BP 121/60 05/25/22 08:35 Pulse Ox 98 05/25/22 08:35 O2 Del Method Room Air 05/24/22 14:20 O2 Flow Rate 1 05/24/22 13:30 Pain Score (VAS): 0 I/O: Intake & Output 05/24/22 05/25/22 05/25/22 23:59 07:59 15:59 Intake Total 1740 240 Output Total 925 200 300 Balance 815 -200 -60 Laboratory Tests 05/25/22 05:04 05/25/22 05:04 WBC 12.7 H RBC 4.42 Hgb 11.5 L Hct 36.8 L MCV 83.3 MCH 26.0 MCHC 31.3 L RDW 15.0 H Plt Count 312 MPV 10.2 Immature Gran % (Auto) 0.3 Neut % (Auto) 68.7 Lymph % (Auto) 23.3 Morehouse % (Auto) 7.1 Eos % (Auto) 0.2 Baso % (Auto) 0.4 Lymph # (Auto) 2.96 [place]house # (Auto) 0.9 H Eos # (Auto) 0.0 Baso # (Auto) 0.1 Abs Immat Gran (auto) 0.04 H Absolute Neuts (auto) 8.8 H Absolute Nucleated RBC 0.0 Nucleated RBC % 0.0 Patient Feedback: Patient satisfied with anesthetic care.
== END 2022-05-25 12:50 | disposition home or self-care (01) ==
LOC: ANHSURGERY 07:13 → ANHOB2 10:39
PROVIDERS: PCP Family Medicine; Visit Provider Obstetrics & Gynecology
PROC: (CPT 58552; principal; 2022-05-24 07:30)
DX: C54.1 Malignant neoplasm of endometrium (principal); N83.8 Other noninflammatory disorders of ovary, fallopian tube and broad ligament; N95.0 Postmenopausal bleeding; N80.0 Endometriosis of uterus; N73.6 Female pelvic peritoneal adhesions (postinfective); N39.3 Stress incontinence (female) (male); G89.18 Other acute postprocedural pain; I10 Essential (primary) hypertension; E11.9 Type 2 diabetes mellitus without complications; M79.7 Fibromyalgia; K21.9 Gastro-esophageal reflux disease without esophagitis; D50.9 Iron deficiency anemia, unspecified; Z90.49 Acquired absence of other specified parts of digestive tract; E66.9 Obesity, unspecified; Z68.39 Body mass index [BMI] 39.0-39.9, adult; Z79.891 Long term (current) use of opiate analgesic
CPT/HCPCS: 58552; S2900; 36415; 82948; 85025; 88307; 99199; A9270; J0690; J1100; J1650; J1885; J2250; J2405; J2704; J3010; J7120; J7121

== ENCOUNTER 2022-09-06 13:46 | Outpatient (CLI) | payer MEDICARE, OTHER, SELFPAY ==
--- NOTE | ~2022-09-06 | US_ITS ---
EXAMINATION:US venous doppler LE LT INDICATION:Left lower leg pain for one month TECHNIQUE: Multiple grayscale, color flow and Doppler images of the left lower extremity deep venous systems were obtained and reviewed. COMPARISON:Ultrasound dated 03/14/2022 FINDINGS: The common femoral, superficial femoral and popliteal veins demonstrate normal respiratory variation, augmentation and compressibility. Color flow is also seen within the posterior tibial, pe roneal, greater saphenous and profunda veins. IMPRESSION: 1: No lower extremity deep venous thrombosis. Reviewed, dictated and finalized at location B.
== END 2022-09-06 13:47 | disposition home or self-care (01) ==
PROVIDERS: PCP Family Medicine; Visit Provider Orthopaedic Surgery
DX: M79.662 Pain in left lower leg (principal); M79.89 Other specified soft tissue disorders
CPT/HCPCS: 93971

== ENCOUNTER 2023-01-19 10:00 | Outpatient (RCR) | payer MEDICARE, OTHER, SELFPAY ==
--- NOTE | 2022-11-17 11:45 | PTOPEVAL1 ---
Assessment and note entered by Amanda Petersen DPT Evaluation Information Assessment Status Evaluation Subjective Information Pt reports a lot of back pain and R hip pain since October. Highest recently 06/21 and lowest 5/10. Pain increases with standing, worse with walking. Lifting her leg to get in/out of bed or tub increases pain, bending over to put socks on increases pain. Pain relief with rest. Pain is across low back and lateral right leg, sometimes into groin. Generally not past knee. Denies n/t. Therapy ordered by Dr. Yates, also ordered blood work. Returns to Dr. Yates January 03. Pt is retired. Can drive unless her pain is very high to start with. Reported Pain Level Pain Score 6: Self Report Assessment PT Clinical Summary The patient is presenting to skilled therapy with an exacerbation of radiating right low back pain since October. She presents with decreased and painful lumbar range of motion and lower extremity strength, as well as tenderness to palpation. These impairments are contributing to her pain and difficulty with activities like standing, walking , and putting on socks. She will benefit from therapy to address her impairments and safely reduce pain and dysfunction. Plan of Care Interventions Electrical Stimulation,Gait Training,Hot Pack/Cold Pack,Manual Therapy,Mechanical Traction,Neuro Re- education,Patient/Caregiver Education,Therapeutic Activities,Therapeutic Exercise,Self-Care/Home Management PT Services Indicated Yes Treatment Frequency and 2 times a week for 4 weeks Duration These treatments will address the objective and functional deficits as defined above. The patient will be advanced safely and appropriately in order for the patient to progress towards his/her prior level of function. Additional exercises will be introduced and as well as a comprehensive home exercise program upon discharge, if needed, ?to ensure carryover of functional gains achieved in the clinic. This treatment plan has been reviewed and agreement upon by the patient.
--- NOTE | 2022-12-22 10:46 | PTOPPROG ---
Assessment and note entered by Amanda Petersen DPT Evaluation Information Assessment Status Progress Subjective Information Pt reports highest pain in the last week 06/21 and lowest /. Overall states therapy is really helping . States she is sleeping better and can get around better with her cane. Pain increased after having to walk long at the grocery store due to her cane getting stolen. Less difficulty navigating stairs, still not using reciprocal pattern. Can walk longer distances. Improvements with cleaning but is still difficult due to use of cane. Returns to MD 01/03/23. Some swelling in R knee at times. Does report radiation of pain/ tingling into foot at this point. Assessment PT Clinical Summary The patient has made good progress in therapy overall. She reports decreased intensity of pain and improvements with her ability to navigate stairs and walk longer distances. She demonstrates improved lumbar range of motion with less pain and improved lower extremity strength. She continues to have pain and difficulty with some ADL's including cleaning. She will benefit from further therapy to continue addressing pain in order to return to prior level of function. Plan of Care Interventions Electrical Stimulation,Gait Training,Hot Pack/Cold Pack,Manual Therapy,Mechanical Traction,Neuro Re- education,Patient/Caregiver Education,Therapeutic Activities,Therapeutic Exercise,Self-Care/Home Management PT Services Indicated Yes Treatment Frequency and 2 times a week for 4 weeks Duration These treatments will address the objective and functional deficits as defined above. The patient will be advanced safely and appropriately in order for the patient to progress towards his/her prior level of function. Additional exercises will be introduced and as well as a comprehensive home exercise program upon discharge, if needed, ?to ensure carryover of functional gains achieved in the clinic. This treatment plan has been reviewed and agreement upon by the patient.
--- NOTE | 2023-01-01 08:04 | PCPTNOTE ---
Patient called & cancelled scheduled appointment this date due to having a fever and cough.
--- NOTE | 2023-01-19 10:24 | PTOPDC ---
Assessment and note entered by Amanda Petersen DPT Evaluation Information Assessment Status Discharge Subjective Information Pt continues to report therapy is going well. Highest pain in the last week 4-5/10 when doing stairs. Lowest pain 1/10. Still also having foot issues which are being addressed by another MD. Feels confident with discharge this visit. Reported Pain Level Pain Score 1: Self Report Assessment PT Clinical Summary The patient has made good progress in therapy and reports overall greatly decreased pain. She demonstrates improved lower extremity strength and less pain with muscle testing and range of motion . Due to her progress, discharge is recommended at this time. She has been educated to continue her HEP and to follow up with MD and/or PT at this time. Plan of Care PT Services Indicated No
== END 2023-01-31 11:41 | disposition home or self-care (01) ==
LOC: ANHPT 10:00
PROVIDERS: PCP Family Medicine; Visit Provider Nurse Practitioner
DX: M25.551 Pain in right hip (principal); M54.41 Lumbago with sciatica, right side
CPT/HCPCS: 97014; 97110; 97140; 97161; 97530; G0283

== ENCOUNTER 2023-01-20 07:31 | Outpatient (CLI) | payer MEDICARE, OTHER, SELFPAY ==
--- NOTE | ~2023-01-20 | MR_ITS ---
EXAMINATION: MR hip RT wo con DATE: 01/20/2023 08:40 INDICATION: Right hip pain TECHNIQUE: Magnetic resonance imaging (MRI) of the right hip was performed without intravenous contr ast. Sequences included full-field axial PD-weighted FS FSE and T1-weighted FSE, coronal of the pelvi s with PD-weighted FS FSE, small field of view of the right hip with axial PD-weighted FS FSE, sagit quinten PD-weighted FS FSE and coronal PD weighted FS FSE. Additional radial T1-weighted FGR oriented ort hogonal to the acetabular rim were obtained for evaluation of the labrum. COMPARISON: CT abdomen and pelvis dated 09/03/2014 FINDINGS: Bones/labrum/cartilage: Alignment is normal. No fracture, avascular necrosis or pathologic marrow replacing process. Low sig nal intensity bone island at the right femoral head. Additional low signal intensity corresponding to chronic sclerotic bilateral osteitis condensans ilii. There is also chronic osteitis pubis. Mild ost eoarthritis at the right hip with posterior to posterosuperior predominant mild nonuniform joint spac e narrowing with mild partial-thickness cartilage loss with smooth chondral surface and without degen erative subchondral changes. Right acetabular labrum is normal. Fluid: Symmetric physiologic amount of fluid within both hip joints. Soft tissues: Normal and symmetric muscle bulk and signal in the pelvis and visualized proximal thighs. Moderate te ndinopathy at the distal right gluteus medius tendon without discrete tear. There is small amount of underlying increased fluid signal consistent with mild ileus medius bursitis. Enthesophytes along the right greater trochanter. There is also a small heterotopic ossicle situated between the greater tro chanter and the more superficial distal gluteus arcelia tendon. Mild surrounding fluid signal consist ent with mild right trochanteric bursitis. Mild right gluteus minimus tendinopathy. The iliopsoas, pr oximal hamstring and remaining gluteal tendons are normal. The uterus is not identified and has likel y been surgically resected. There are a few small diverticula along the sigmoid and distal descending colon without adjacent inflammatory changes to suggest diverticular colitis. Limited evaluation of v isceral organs of the pelvis is otherwise unremarkable. Midline abdominal surgical scar. No pathologi annika enlarged pelvic/inguinal lymphadenopathy. IMPRESSION: 1. Mild right gluteus medius medius and trochanteric bursitis with moderate right and gluteus medius and mild right gluteus minimus tendinopathy without tear. 2. Mild right hip osteoarthritis. Reviewed, dictated and finalized at location A. 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 Mild right gluteus medius medius and trochanteric bursitis with moderate rig ht and gluteus medius and mild right gluteus minimus tendinopathy without tear. 2. Mild right hip osteoarthritis.
== END 2023-01-20 07:32 | disposition home or self-care (01) ==
PROVIDERS: PCP Family Medicine; Visit Provider Orthopaedic Surgery
DX: M16.11 Unilateral primary osteoarthritis, right hip (principal)
CPT/HCPCS: 73721

== ENCOUNTER 2023-02-21 10:33 | Outpatient (CLI) | payer MEDICARE, OTHER, SELFPAY | END 2023-02-21 10:34 | disposition home or self-care (01) | LOC: ANHSURGERY 10:38 | PROVIDERS: PCP Family Medicine; Visit Provider Orthopaedic Surgery | DX: M70.61 Trochanteric bursitis, right hip (principal) | CPT/HCPCS: 87081 ==

== ENCOUNTER 2023-02-26 00:58 | Day surgery (SDC) | payer MEDICARE, OTHER, SELFPAY ==
--- NOTE | 2023-02-19 08:39 | PC.NURSE ---
Report to the Outpatient Waiting Room, entrance under the green pavilion located off [facility], at time _0830 on date ___02/26/23____. Planned Procedure Time: _1030 . Time changes happen often and if your time is changed the preop area will call you the afternoon before. - You and your visitor will be asked to self-screen and do not enter if you have any COVID symptoms. - A mask is optional within the hospital at this time. Patients may have clear liquids (water, carbonated beverages, clear teas, apple juice) until 3 hours prior to surgery with a maximum of 20 ounces. - No food from midnight until time of surgery - Infants may have breast milk until 4 hours before surgery, infant formula 6 hours prior to surgery. - Children will be allowed to drink immediately following surgery. If applicable, please bring a bottle or sippy cup to assist with drinking. Juice, water, soda, and popsicles are readily available. For infants on formula, please bring formula the day of surgery. Pacifiers are allowed. Take the following medications with a SIP of water the morning of surgery: ___AMLODIPINE DO NOT STOP ANY OF YOUR OTHER PRESCRIPTION MEDICATIONS PRIOR TO SURGERY ?EXCEPT THE FOLLOWING Medications to discontinue per physician ____ALL VITAMINS/SUPPLEMENTS 3 DAYS PRE OP.LAST DOSE 02/22/23 Please no make-up, nail prydeinig, hairspray, perfume, deodorant, or body powder the day of surgery. No jewelry (including any body piercings) or valuables the day of surgery, leave them at home. Please take a shower or bath the night before, or the morning of, surgery with an antibacterial soap. Wear comfortable, loose fitting clothing. Children are encouraged to wear pajamas. - Jewelry must be removed prior to entering the operating room. Rings and piercings that are not removed may be cut off. - The hospital will not accept responsibility for valuables. - Please leave all valuables, including medications, at home the day of surgery. If you are going home after surgery, a licensed cat driver must drive you home. - NO public transportation without another adult if you receive anesthesia. - We recommend that an adult stay with you for 24 hours following discharge. - We also recommend that you do not drive, make important decision, drink alcoholic beverages, or take any drugs that were not prescribed by your health care provider for at least 24 hours after your discharge time. For Pediatric surgeries, we recommend two adults accompany the child home. Follow any additional instructions given to you from your surgeon. If you or anyone in your household have experienced Covid symptoms in the past week, please notify your surgeon or the nurse liaison at the phone number below for possible testing. Telephone instructions given to __PATIENT and asked if any additional questions and then verbalized understanding. Patient advised to call surgeon office or pre surgery nurse liaison [phone] if any additional questions.
[2023-02-19 08:48] VITALS: BMI 38.9
[2023-02-26] VITALS (12 sets, daily range): BP systolic 96–150; BP diastolic 53–76; PULSE 62–93; RESP 12–20; TEMP 36–36.6; O2SAT 94–100
[2023-02-26] MEDS: ACETAMINOPHEN 500 MG TABLET 1000 MG PO (08:43)
--- NOTE | 2023-02-26 09:06 | WPDANESEPPF ---
Anes - Initial Pre Proc Eval Procedure: Operation Date: 02/26/23 10:30 Proposed Procedures p Debridement Right Hip Trochanteric Bursa, Proceed as Indicated - Gopi Yates MD Date/Time: 02/26/23 09:06 Surgeon: Gopi Yates MD Pre Op Diagnosis: Right Hip Trochanteric Bursitis Patient Data Age: 67 Gender: F Height: 1.6 m Weight: 99.8 kg Allergies Allergy/AdvReac Type Severity Reaction Status Date / Time codeine AdvReac Mild Nausea Verified 02/26/23 08:39 levofloxacin AdvReac Mild ACHILLES Verified 02/26/23 08:39 TENDON INFLAMATION Home Medications Medication Instructions Recorded Confirmed Type atorvastatin 40 mg tablet 40 mg PO HS 03/17/22 02/26/23 History hydralazine 25 mg tablet 25 mg PO TID PRN elevated blood 03/17/22 02/19/23 History pressure blood-glucose meter (OneTouch #1 ea 03/28/22 01/30/23 Rx Ultra2 Meter kit) blood sugar diagnostic (OneTouch #50 ea 05/04/22 01/30/23 Rx Ultra Test strips) pantoprazole 40 mg tablet,delayed 40 mg PO QAM #90 tabs 05/04/22 02/26/23 Rx release (Protonix) irbesartan 300 mg tablet 300 mg PO HS 05/17/22 02/26/23 History amlodipine 5 mg tablet 5 mg PO DAILY 09/05/22 02/26/23 History lancets 33 gauge (OneTouch Delica #100 ea 10/23/22 01/30/23 Rx Lancets) fluticasone propionate 50 1 spray intranasal BID #16 grams 01/09/23 02/26/23 Rx mcg/actuation nasal spray,suspension (Flonase Allergy Relief) Patient hx anesthesia problems: post op nausea/vomiting Family hx anesthesia problems: none Results Review: All pre-operative results and documents have been reviewed as part of the pre-operative evaluation. [facility] Past Medical History Medical History (Updated 01/30/23 @ 14:03 by Gopi Yates MD) Abdominal pain Urinalysis normal, lipase 19, AST 15, ALT 17 on 03/01/2022. Abnormal vaginal bleeding in postmenopausal patient Acute diverticulitis Acute non-recurrent maxillary sinusitis Benign essential HTN renal Doppler revealed greater than 60% stenosis right renal artery and less than 60% on the left Mar, 2022 by tobacco feeder catcher. Nuclear stress test was negative. Bilateral lower abdominal discomfort Breast cancer screening Chest pain (~03/2022) ER 03/16/2022 with chest x-ray normal, EKG normal, cardiac enzymes normal. Chronic right shoulder pain Colon cancer screening colonoscopy 2019 negative except for poor prep with recheck in 3 years. Normal colonoscopy 11/16/2022 with recheck in 5 years Diverticulosis noted. Anastomosis normal. Controlled diabetes mellitus Glucose 115 with hemoglobin A1c 5.8 on 03/03/2022. Controlled diabetes mellitus with hyperglycemia Cough COVID-19 (11/29/20) COVID-19 (~04/10/22) 2nd episode with positive COVID test 04/10/2022. Degenerative arthritis of knee, bilateral Diarrhea Exposure to COVID-19 virus Facial cellulitis Fibromyalgia Gastro-esophageal reflux disease without esophagitis Headache CT of the brain in the ER on 03/16/2022 negative. Hiatal hernia Impaired fasting glucose Glucose 115 with hemoglobin A1c 5.8 on 03/01/2022. Iron deficiency anemia, unspecified (03/01/22) iron low at 20 with 12% saturation and ferritin 77 on 03/01/2022. Hemoglobin 11.5 on 05/25/2022. Migraine headache without aura Multiple exostoses Otitis media of left ear PONV (postoperative nausea and vomiting) Subacromial impingement of right shoulder Trochanteric bursitis, right hip Surgical History Surgical History Arthritis of right acromioclavicular joint DCE October 10, 2021 H/O knee surgery History of cholecystectomy History of colon resection History of repair of right rotator cuff Right rotator cuff repair with DCE October 10, 2021 History of total hysterectomy Family History Family History Mother Family history of cardiovascular disease Father Family history
[2023-02-26] MEDS: LACTATED RINGERS 1,000 ML 30 ML IV CONT ×2 (09:15→11:43)
[2023-02-26] MEDS: KETOROLAC 15 MG/ML VIAL (*BKC) IV PUSH (09:17)
[2023-02-26] MEDS: SCOPOLAMINE 1.5 MG PATCH TRANSDERM (09:28)
[2023-02-26 09:30] LABS: Glucose Point of Care 127 mg/dl (65-105)
--- NOTE | 2023-02-26 09:46 | WPDHPUPDATE1 ---
History and Physical Update Update Date/Time: 02/26/23 09:46 History and Physical has been reviewed, including an updated exam of the patient. There are NO changes in the patient's condition. Risks, benefits, and alternatives have been discussed and questions answered. Patient agrees to proceed with procedure.
[2023-02-26] MEDS: ceFAZolin 2 GM/D5W 50 ML 2 GM/50 ML BAG IVPB ×2 (10:26→17:02)
--- NOTE | 2023-02-26 11:37 | W.PM.PROC2 ---
Procedure Note - Detailed Date of Procedure 02/26/23 Pre-op Diagnosis Right Hip Trochanteric Bursitis Post-op Diagnosis Same Procedure Performed debridement right hip greater trochanteric bursa with removal of spurs greater trochanter Surgeon Gopi Yates MD [employer] [place] Anesthesia General Description of Procedure The patient was identified and proper site identified. She was taken to the operating room and transferred to the OR table. After general anesthetic induction and intubation, she was put into the left lateral decubitus position usual manner for right hip procedure. Right hip and thigh was prepped and draped in usual sterile fashion. Longitudinal incision was made over the greater trochanter. Sharp dissection was carried down through the subcutaneous tissue to the gluteus fascia and ITB band. Hemostasis was carried out throughout the procedure. The deep fascia was divided and the greater trochanter identified. There was inflamed, eroded trochanteric bursa which was sharply debrided. There was an enormous spur at the distal portion greater trochanter which was a cleared of soft tissue debris. There was a quasi loose body laying over the spur which was removed and then osteotome was used to remove the remainder of the spur. Rongeur was used to smooth it over. . Wounds irrigated with sterile saline. Surgicel powder was applied to the tissues deep to the deep fascia. Shortly after this patient became transiently bradycardic. This was treated it was noted that she had also received some narcotics early before that. Regardless the Surgicel powder was irrigated out of the wound. The deep fascia was reapproximated with a looped PDS as was the deeper layers of the subQ. Skin closed with 3-0 Monocryl, 2-0 Quill and tissue adhesive. Sterile dressings applied. She tolerated the procedure well overall. Estimated blood loss 20 milliliters. She received perioperative antibiotics. Estimated Blood Loss 20 Drains No Packing No Pathology None sent Complications No immediate complications Condition Stable Disposition PACU [facility] Billing Surgery - Charge Forward: Surgery Billing ([id number])
[2023-02-26 11:46] LABS: Glucose Point of Care 136 mg/dl (65-105)
[2023-02-26] MEDS: fentaNYL CITRATE INJ (*CRX) 100 MCG/2 ML VIAL 25 MCG IV PUSH ×4 (11:57→12:31)
[2023-02-26] MEDS: SODIUM CHLORIDE 0.9% IV 1,000 ML 125 ML IV CONT ×2 (13:00→21:03)
--- NOTE | 2023-02-26 13:19 | ADMGEN ---
This patient, Adwoa Nugent, was admitted to -. Patient/family oriented to hospital policies and general routines including ID bracelet, bed and alarms, visiting hours, pain management, procedures, bathroom and other care routines, personal items, smoking policy, room service/diet, and visiting hours. Information on how to activate the Rapid Response Team has been discussed. Patient/Family are encouraged to report perceived risks to care and to ask questions if they do not understand what they are told or what they should do.
[2023-02-26] MEDS: HYDROcodone/acetaminophen (*CRX) 5-325 MG TABLET 2 TAB PO ×2 (13:37→21:03)
--- NOTE | 2023-02-26 14:15 | ADMGEN ---
This patient, Adwoa Nugent, was admitted to [facility] Surg Room 328-01. Patient/family oriented to hospital policies and general routines including ID bracelet, bed and alarms, visiting hours, pain management, procedures, bathroom and other care routines, personal items, smoking policy, room service/diet, and visiting hours. Information on how to activate the Rapid Response Team has been discussed. Patient/Family are encouraged to report perceived risks to care and to ask questions if they do not understand what they are told or what they should do.
--- NOTE | 2023-02-26 14:56 | PM.IMCN ---
Assessment and Plan Assessment and plan (1) S/P debridement: Code(s): Z98.890 - Other specified postprocedural states Status: Acute Assessment and Plan: Postop care per orthopedic physician Pain management per orthopedic physician. Patient is on Tylenol, fentanyl, and had [place]. DVT prophylaxis per ortho. She has SCDs on. PT and OT per ortho (2) Gastro-esophageal reflux disease without esophagitis: Code(s): K21.9 - Gastro-esophageal reflux disease without esophagitis Status: Acute Assessment and Plan: Continue with pantoprazole (3) Benign essential HTN: Code(s): I10 - Essential (primary) hypertension Status: Acute Assessment and Plan: Continue with hydralazine, amlodipine, and irbesartan (4) Mixed hyperlipidemia: Code(s): E78.2 - Mixed hyperlipidemia Status: Acute Assessment and Plan: Thank you for allowing is to Co manage along side you for this patient. Please do not hesitate to notify us for any needs or concerns. Plan Continue with atorvastatin HPI Data of Consult Consult date: 02/26/23 Requesting Physician: Gopi Yates MD Primary Care Provider: Reji Carrera MD Consult Narrative Reason for consult: Medical management Narrative: Adwoa Nugent is a 67 year old female who has a history of having severe right hip pain. The patient was having severe pain over the greater trochanter without any radiation and is present with most activities. She had an MRI on 01/20/2023 which was read as. Mild right gluteus medius medius and trochanteric bursitis with moderate right and gluteus medius and mild right gluteus minimus tendinopathy without tear. 2. Mild right hip osteoarthritis. The patient was taken today for a debridement of right hip greater trochanteric bursa with removal spurs greater trochanter per Dr. Yates. see operative note. Estimated blood loss was 20 cc. No immediate complications were seen. The patient has no complaints at this time. She was admitted to Orthopedic Services and the hospitalist was consulted on the date of service of 02/26/2023. Review of Systems Review of Systems: All systems reviewed & are unremarkable except as noted in HPI and below Constitutional: Constitutional: Reports as per HPI and Reports no additional constitutional complaints Eyes: Eyes: Reports as per HPI and Reports no additional eye complaints ENT: Reports system reviewed and no additional complaints, except as documented and Reports Normal hearing present Cardiovascular: Cardiovascular: Reports no additional cardiovascular complaints Respiratory: Respiratory: Reports no additional respiratory complaints and Reports no additional respiratory complaints Gastrointestinal: Gastrointestinal: Reports as per HPI and Reports no additional gastrointestinal complaints Musculoskeletal: Musculoskeletal: Reports no additional musculoskeletal complaints Integumentary/Breasts: Skin/Breast: Reports system reviewed and no additional complaints, except as docu and Reports as per HPI Neurologic: Reports system reviewed and no additional complaints, except as documented, Reports as per HPI and Reports Normal hearing present Psychiatric: Psychiatric: Reports no additional psychiatric complaints and Reports as per HPI Endocrine: Endocrine: Reports no additional endocrine complaints Hematologic/Lymphatic: Hematologic/Lymphatic: Reports no additional hematologic/lymphatic complaints Allergic/Immunologic: Allergic/Immunologic: Reports no additional allergic/immunologic complaints [facility] Past Medical History Medical History (Updated 02/26/23 @ 15:21 by Sailaja Arizmendi NP) Abdominal pain Urinalysis normal, lipase 19, AST 15, ALT 17 on 03/01/2022. Abnormal vaginal bleeding in postmenopausal patient Acute diverticulitis Acute non-recurrent maxillary sinusitis Benign essential HTN renal Doppler revealed greater than 60% stenosis right renal artery a
[2023-02-26 16:36] LABS: Glucose Point of Care 153 mg/dl (65-105)
[2023-02-26] MEDS: HYDROcodone/acetaminophen (*CRX) 5-325 MG TABLET 1 TAB PO (17:15)
[2023-02-26] MEDS: SENNA/DOCUSATE SODIUM TABLET 2 TAB PO (17:16)
[2023-02-26] MEDS: ATORVASTATIN 40 MG TABLET PO (21:04)
[2023-02-26] MEDS: IRBESARTAN 150 MG TABLET 300 MG PO (21:04)
[2023-02-26] MEDS: FLUTICASONE PROPIONATE 0.05% NA SPR 16 GM BTL (*BKC) 1 SPRAY NASAL (21:04)
[2023-02-27] MEDS: SODIUM CHLORIDE 0.9% IV 1,000 ML 125 ML IV CONT
[2023-02-27 00:50] VITALS: BP 141/66; PULSE 80; RESP 16; TEMP 36.3; O2SAT 97
[2023-02-27] MEDS: ceFAZolin 2 GM/D5W 50 ML 2 GM/50 ML BAG IVPB ×2 (02:16→08:44)
[2023-02-27 04:49] VITALS: BP 143/63; PULSE 95; RESP 18; TEMP 36.7; O2SAT 96
[2023-02-27 06:22] LABS: Basophils Percent Auto 0.2 % (0.2-1.2); Hematocrit 36.7 % (37.0-47.0); Hemoglobin 11.5 g/dL (12.0-15.0); Immature Granulocyte Absolute 0.07 K/mm3 (0.00-0.031); Immature Granulocyte Percent A 0.5 % (0-0.5); Lymphocytes Absolute Auto 2.12 K/mm3 (0.9-3.2); Lymphocytes Percent Auto 15.7 % (18.3-44.2); Mean Corpuscular HGB Conc 31.3 g/dl (32-36); Mean Corpuscular Hemoglobin 26.1 pg (26-34); Mean Corpuscular Volume 83.2 fl (80-100); Monocytes Percent Auto 7.2 % (2.6-8.5); Neutrophils Absolute Auto 10.4 K/mm3 (1.3-6.7); Neutrophils Percent Auto 76.4 % (45.5-73.1); Platelet Count Result 320 k/mm3 (150-375); Red Blood Count 4.41 M/mm3 (4.2-5.4); Red Cell Distribution Width 14.9 % (11.5-14.5); White Blood Count 13.5 K/mm3 (4.5-10.0)
[2023-02-27] MEDS: HYDROcodone/acetaminophen (*CRX) 5-325 MG TABLET 1 TAB PO (06:29)
[2023-02-27 06:43] LABS: Alanine Aminotransferase 21 U/L (6-35); Albumin Level 3.7 g/dL (3.5-5.1); Alkaline Phosphatase 73 U/L (38-126); Anion Gap 6 mmol/L (8-16); Aspartate Amino Transferase 24 U/L (14-36); Bilirubin,Total 0.7 mg/dL (0.2-1.3); Blood Urea Nitrogen 12 mg/dL (7-17); Calcium 8.1 mg/dL (8.4-10.2); Carbon Dioxide 26 mmol/L (22-30); Chloride 107 mmol/L (98-107); Estimated CRCL calculation 88 ml/min; Estimated Glomerular Filt Rate > 60; Glucose 121 mg/dL (65-110); Potassium 4.2 mmol/L (3.4-5.0); Sodium 139 mmol/L (137-145)
[2023-02-27 07:38] LABS: Glucose Point of Care 107 mg/dl (65-105)
--- NOTE | 2023-02-27 07:41 | PM.DS ---
DS: Admitting Diagnosis Discharge Date February 27, 2023 Admitting Diagnosis chronic right hip trochanteric bursitis DS: Discharge Diagnosis Discharge Diagnosis Plan Plan discharge home today. Surgery discussed. Walker full-time for two weeks. Follow up in two weeks in the office, call sooner if need arises. DS: Summary Hospital Course Reason for hospitalization: Observation following outpatient procedure. Hospital Course: Following the surgery the patient was admitted to the floor. She participated in therapy and did well. Being discharged home on postop day one. Status at Discharge Functional status at discharge: uses cane/walker Overall status at discharge: patient is not back to baseline Time Spent with Patient Time attestation: Total time spent providing and/or coordinating discharge services: Exam Const: General: cooperative, no acute distress and alert Nutritional Appearance: other Orientation/consciousness: patient oriented x3 Limitations: no limitations HENMT: Head: normal to inspection Chest: Chest palpation & inspection: normal inspection of the chest Resp: Effort & Inspection: normal respiratory effort and able to speak in complete sentences GI: Inspection: other Extrem: General: normal to inspection Other: Exam of Right lower extremity shows intact neurovascular status. No bruising about the right hip incision which is dry. Exam otherwise unremarkable. Psych: Appearance: grossly normal Mental Status: mental status grossly normal DS: Data Data Completed and Pending Labs on day of discharge: Labs from last 24 hours 02/27/23 02/27/23 02/27/23 07:34 06:04 06:04 WBC 13.5 H RBC 4.41 Hgb 11.5 L Hct 36.7 L MCV 83.2 MCH 26.1 MCHC 31.3 L RDW 14.9 H Plt Count 320 MPV 10.0 Immature Gran % (Auto) 0.5 Neut % (Auto) 76.4 H Lymph % (Auto) 15.7 L [place] % (Auto) 7.2 Eos % (Auto) 0.0 Baso % (Auto) 0.2 Lymph # (Auto) 2.12 [place] # (Auto) 1.0 H Eos # (Auto) 0.0 Baso # (Auto) 0.0 Abs Immat Gran (auto) 0.07 H Absolute Neuts (auto) 10.4 H Absolute Nucleated RBC 0.0 Nucleated RBC % 0.0 Sodium 139 Potassium 4.2 Chloride 107 Carbon Dioxide 26 Anion Gap 6 L BUN 12 Creatinine 0.60 L Estim Creat Clear Calc 88 Estimated GFR > 60 Glucose 121 H POC Capillary Glucose 107 H Calcium 8.1 L Magnesium 2.0 Total Bilirubin 0.7 AST 24 ALT 21 Alkaline Phosphatase 73 Total Protein 6.0 L Albumin 3.7 02/26/23 02/26/23 02/26/23 16:16 11:44 09:26 WBC RBC Hgb Hct MCV MCH MCHC RDW Plt Count MPV Immature Gran % (Auto) Neut % (Auto) Lymph % (Auto) [place] % (Auto) Eos % (Auto) Baso % (Auto) Lymph # (Auto) [place] # (Auto) Eos # (Auto) Baso # (Auto) Abs Immat Gran (auto) Absolute Neuts (auto) Absolute Nucleated RBC Nucleated RBC % Sodium Potassium Chloride Carbon Dioxide Anion Gap BUN Creatinine Estim Creat Clear Calc Estimated GFR Glucose POC Capillary Glucose 153 H 136 H 127 H Calcium Magnesium Total Bilirubin AST ALT Alkaline Phosphatase Total Protein Albumin Discharge Plan Discharge Patient Disposition: Home, Self-Care Discharge Instructions: Remove the Scopolamine patch that was placed behind your ear in 72 hours or less. Wash your hands after touching. Please use a walker full-time until you come in for your two week follow-up. Starting tomorrow it is okay to remove the dressing, leave it off and use the shower. Avoid lying on the right side. Ice the incision area frequently to help keep swelling down. I recommend using the pain medicine on a regular basis for the first several days, then as needed after that. An anti nausea medicine will be prescribed as well. While you are taking the narc
[2023-02-27 08:05] VITALS: BP 119/55; PULSE 77; RESP 16; TEMP 36.6; O2SAT 98
[2023-02-27] MEDS: SENNA/DOCUSATE SODIUM TABLET 2 TAB PO (08:38)
[2023-02-27] MEDS: PANTOPRAZOLE 40 MG TABLET PO (08:39)
[2023-02-27] MEDS: amLODIPine BESYLATE 5 MG TABLET PO (08:39)
[2023-02-27] MEDS: ASPIRIN 325 MG ENTERIC TABLET PO (08:39)
[2023-02-27] MEDS: polyethylene glycoL 3350 17 GM POWD.PACK PO (08:39)
--- NOTE | 2023-02-27 09:45 | PM.IMPN ---
Progress Note: A&P Assessment and Plan (1) S/P debridement: Code(s): Z98.890 - Other specified postprocedural states Status: Deleted Assessment and Plan: POD 1 Postop care per orthopedic physician Pain management per orthopedic physician. Patient is on Tylenol, fentanyl, and had [place]. DVT aspirin PT and OT per ortho (2) Gastro-esophageal reflux disease without esophagitis: Code(s): K21.9 - Gastro-esophageal reflux disease without esophagitis Status: Acute Assessment and Plan: Continue with pantoprazole (3) Benign essential HTN: Code(s): I10 - Essential (primary) hypertension Status: Acute Assessment and Plan: Current BP is stable at 119/55 Continue with hydralazine, amlodipine, and irbesartan Stable at this time (4) Mixed hyperlipidemia: Code(s): E78.2 - Mixed hyperlipidemia Status: Acute Assessment and Plan: Continue with atorvastatin Time Spent With Patient Time: 48 minutes Time with patient: Greater than 35 minutes Subjective Date/time seen: 02/27/23944 Interval history: 02/27/23944 patient is resting in bed. Patient stated that she is feeling okay. She is having a lot of pain. She also stated that she was a bit nauseous however she was able to eat and stated that she feels like it is all dissipating. A reviewed her labs with her. She had no current complaints. Patient is stable for discharge per the hospitalist standpoint. Consult date: 02/26/23 Adwoa Nugent is a 67 year old female who has a history of having severe right hip pain.? The patient was having severe pain over the greater trochanter without any radiation and is present with most activities.? She had an MRI on 01/20/2023 which was read as. Mild right gluteus medius medius and trochanteric bursitis with moderate right and gluteus medius and mild right gluteus minimus tendinopathy without tear. 2. Mild right hip osteoarthritis. The patient was taken today for a debridement of right hip greater trochanteric bursa with removal spurs greater trochanter per Dr. Yates. see operative note.? Estimated blood loss was 20 cc.? No immediate complications were seen.? The patient has no complaints at this time.? She was admitted to [facility] and the hospitalist was consulted on the date of service of 02/26/2023. Review of Systems Review of Systems: All systems reviewed & are unremarkable except as noted in HPI and below Exam Narrative: General: well-nourished, well-appearing 67-year-old female, laying in bed, comfortable, NARD Neuro: awake, alert and oriented x4, speech clear, no focal neuro deficits noted HEENMT: normocephalic, atraumatic, EOMI, sclerae anicteric, moist oral mucosa Respiratory: Clear to auscultation bilaterally without crackles, rhonchi or wheezes, nonlabored breathing Cardio: regular rate, regular rhythm with S1-S2 Abdomen: nondistended, normoactive bowel sounds, soft, nontender to palpation Extremities: no edema, erythema, or tenderness to palpation, DP pulses 2+ bilaterally, ice pack to right hip, fully dressed unable to assess dressing or wound condition Skin: no rashes or lesions, warm and dry Psych: appropriate mood and affect, judgment and insight intact Objective Data Vital Signs Vital Signs: Vital Signs - 24 hr 02/26/23 11:43 02/26/23 11:55 02/26/23 12:10 Temperature 97.5 F L Pulse Rate 93 80 75 Respiratory Rate 18 14 12 Blood Pressure 108/57 L 96/56 L 118/53 L Pulse Oximetry 100 100 100 Oxygen Delivery Simple Face Mask Simple Face Mask Simple Face Mask Oxygen Flow Rate 8 8 8 02/26/23 12:25 02/26/23 12:40 02/26/23 12:52 Temperature Pulse Rate 73 70 84 Respiratory Rate 18 14 18 Blood Pressure 115/58 L 112/53 L 110/53 L Pulse Oximetry 94 95 97 Oxygen Delivery Room Air Room Air Room Air Oxygen Flow Rate 02/26/23 13:45 02/26/23 13:08 02/26/23
[2023-02-27] MEDS: HYDROcodone/acetaminophen (*CRX) 5-325 MG TABLET 2 TAB PO (09:57)
== END 2023-02-27 11:20 | disposition home or self-care (01) ==
LOC: ANHSURGERY 09:31 → ANH3MEDSUR 13:29
PROVIDERS: Nurse Practitioner; PCP Family Medicine; Visit Provider Orthopaedic Surgery
PROC: (CPT 11044; principal; 2023-02-26 10:30)
DX: M70.61 Trochanteric bursitis, right hip (principal); R00.1 Bradycardia, unspecified; I10 Essential (primary) hypertension; K21.9 Gastro-esophageal reflux disease without esophagitis; E78.2 Mixed hyperlipidemia; E11.9 Type 2 diabetes mellitus without complications; D50.9 Iron deficiency anemia, unspecified; E66.9 Obesity, unspecified; Z68.41 Body mass index [BMI] 40.0-44.9, adult
CPT/HCPCS: 11044; 36415; 80053; 82948; 83735; 85025; 97110; 97161; 97165; 97530; A9270; J0330; J0690; J1100; J1170; J1885; J2250; J2370; J2405; J2704; J3010; J7030; J7120

== ENCOUNTER 2023-08-06 11:42 | Emergency (ER) | payer MEDICARE, OTHER, SELFPAY ==
--- NOTE | ~2023-08-06 | XR_ITS ---
XR knee LT min 4V 08/06/2023 12:05 Indication: Left knee pain after fall Procedure: 4 views left knee Comparison: 09/06/2022 Findings: There is moderate tricompartment osteoarthritis. No significant joint effusion. No fracture or traumatic malalignment. Impression: 1: Moderate tricompartment osteoarthritis. Reviewed, dictated and finalized at location B. Impression: 1: Moderate tricompartment osteoarthritis.
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
[2023-08-06 11:57] VITALS: BP 159/84; PULSE 78; RESP 18; TEMP 36.2; O2SAT 97
--- NOTE | 2023-08-06 12:49 | PC.NURSE ---
+PMS POST LUIS MIGUEL APPLICATION
== END 2023-08-06 12:41 | disposition home or self-care (01) ==
PROVIDERS: Emergency Provider Nurse Practitioner Family; PCP Family Medicine
DX: S83.92XA Sprain of unspecified site of left knee, initial encounter (principal); I10 Essential (primary) hypertension; E11.9 Type 2 diabetes mellitus without complications; W18.39XA Other fall on same level, initial encounter
CPT/HCPCS: 73564; 99213; G0463

== ENCOUNTER 2023-08-14 13:53 | Emergency (ER) | payer MEDICARE, OTHER, SELFPAY ==
--- NOTE | ~2023-08-14 | XR_ITS ---
XR foot LT min 3V DATE: 08/14/2023 15:57 INDICATION: Foot pain, especially at heel and fifth digit TECHNIQUE: 4 views COMPARISON: None FINDINGS: Prominent posterior and plantar calcaneal enthesopathy. There is osteoarthritic joint space narrowing and spurring at the first tarsometatarsal and first met atarsophalangeal joints. No fracture or dislocation, periosteal reaction or bone destruction. IMPRESSION: Calcaneal enthesopathy Osteoarthritis Reviewed, dictated and finalized at location L.
[2023-08-14 14:08] VITALS: BP 145/69; PULSE 73; RESP 20; TEMP 36.2; O2SAT 98
--- NOTE | 2023-08-14 19:01 | ED.LOWEXIN ---
HPI - Extremity Injury (Lower) General Chief Complaint: Extremity Injury, Lower Stated Complaint: worsening cellulitis Time Seen by Provider: 08/14/23 15:41 History of Present Illness HPI Narrative: Patient had a recent knee injury, then cellulitis, after everything cleared up she noticed that she was having pain to her left foot/heel. She is able to walk without issues. No focal numbness or weakness. Related Data Home Medications Medication Instructions Recorded Confirmed atorvastatin 40 mg tablet 40 mg PO HS 03/17/22 08/08/23 amlodipine 5 mg tablet 5 mg PO DAILY 09/05/22 08/08/23 Allergies Allergy/AdvReac Type Severity Reaction Status Date / Time codeine AdvReac Mild Nausea Verified 08/08/23 13:57 levofloxacin AdvReac Mild ACHILLES Verified 08/08/23 13:57 TENDON INFLAMATION Review of Systems Review of Systems: All systems reviewed & are unremarkable except as noted in HPI and below PMFSH Past Medical History Medical History Abdominal pain Urinalysis normal, lipase 19, AST 15, ALT 17 on 03/01/2022. Abnormal vaginal bleeding in postmenopausal patient Acute diverticulitis Acute non-recurrent maxillary sinusitis Benign essential HTN renal Doppler revealed greater than 60% stenosis right renal artery and less than 60% on the left Mar, 2022 by neighborhood aide. Nuclear stress test was negative. Bilateral lower abdominal discomfort Breast cancer screening Chest pain (~03/2022) ER 03/16/2022 with chest x-ray normal, EKG normal, cardiac enzymes normal. Chronic right shoulder pain Colon cancer screening colonoscopy 2019 negative except for poor prep with recheck in 3 years. Normal colonoscopy 11/16/2022 with recheck in 5 years Diverticulosis noted. Anastomosis normal. Controlled diabetes mellitus Glucose 115 with hemoglobin A1c 5.8 on 03/03/2022. Controlled diabetes mellitus with hyperglycemia Cough COVID-19 (11/29/20) COVID-19 (~04/10/22) 2nd episode with positive COVID test 04/10/2022. Degenerative arthritis of knee, bilateral Diarrhea Exposure to COVID-19 virus Fibromyalgia Gastro-esophageal reflux disease without esophagitis Headache CT of the brain in the ER on 03/16/2022 negative. Hiatal hernia History of cellulitis Leg Impaired fasting glucose Glucose 115 with hemoglobin A1c 5.8 on 03/01/2022. Iron deficiency anemia, unspecified (03/01/22) iron low at 20 with 12% saturation and ferritin 77 on 03/01/2022. Hemoglobin 11.5 on 05/25/2022. Migraine headache without aura Multiple exostoses Otitis media of left ear PONV (postoperative nausea and vomiting) Subacromial impingement of right shoulder Surgical History Surgical History Arthritis of right acromioclavicular joint DCE October 10, 2021 H/O knee surgery History of cholecystectomy History of colon resection 2019 History of removal of pigmented skin lesion History of repair of right rotator cuff Right rotator cuff repair with DCE October 10, 2021 History of total hysterectomy Trochanteric bursitis, right hip Debridement with removal spurs February 26, 2023 Family History Family History Mother Family history of cardiovascular disease Father Family history of malignant neoplasm, Onset Age: 79 Grandparent Family history of malignant neoplasm Sibling Family history of malignant neoplasm of breast in first degree relative Social History Social History Social History: The patient is and her [place] is the durable power employment law attorney for healthcare. The patient has 2 children. 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 Lifelong nonsmoker. No alcohol marijuana or illicit drugs. Code status full code Smoking status: Never smoker Alcohol intake: current
== END 2023-08-14 16:51 | disposition home or self-care (01) ==
PROVIDERS: Emergency Provider Emergency Medicine; PCP Family Medicine
DX: M77.52 Other enthesopathy of left foot and ankle (principal); I10 Essential (primary) hypertension; E11.9 Type 2 diabetes mellitus without complications; M17.0 Bilateral primary osteoarthritis of knee; M79.7 Fibromyalgia; D50.9 Iron deficiency anemia, unspecified; Z86.16 Personal history of COVID-19; Z90.49 Acquired absence of other specified parts of digestive tract; Z90.710 Acquired absence of both cervix and uterus
CPT/HCPCS: 73630; 99283

== ENCOUNTER → 2023-10-22 08:12 | Outpatient (CLI) | payer MEDICARE, OTHER, SELFPAY ==
--- NOTE | ~2023-10-22 | MR_ITS ---
MRI of the left knee Clinical history: Pain Technique: Coronal proton density and proton density-weighted images, sagittal proton-density and T2 fat-sat images, and axial proton-density fat-saturated images were acquired. Findings: Anterior and posterior cruciate ligaments are intact. Medial collateral ligament and the la teral collateral ligament complex are intact. Popliteus tendon is intact. Medial and lateral menisci are intact, without evidence of tear. There is high-grade chondral malacia the lateral joint line. There is patchy mild to moderate chondra l malacia the medial femoral condyle. There is moderate to high-grade chondral malacia the femoral tr [place]. Patellar cartilage is relatively well-preserved. Tricompartmental osteophytes are present. Extensor mechanism is intact. Minimal joint effusion present. No Arzola's cyst. Impression: Moderate tricompartmental osteoarthritis. No definite meniscal tear or ligamentous injury seen. Reviewed, dictated and finalized at [facility]. PRESIDENT QUALITY Impression: Moderate tricompartmental osteoarthritis. No definite meniscal tear or ligamentous injury seen.
== END ==
PROVIDERS: PCP Family Medicine; Visit Provider Orthopaedic Surgery
DX: M17.12 Unilateral primary osteoarthritis, left knee (principal)
CPT/HCPCS: 73721